=== PATIENT | male | born 1930 | race Caucasian/White ===

== ENCOUNTER 2016-10-11 09:24 | Inpatient (IN) | payer OTHER, MEDICARE ==
[~2016-10-11] VITALS: Ht 165.1 cm; Wt 80.0 kg
[2016-10-11 09:27] VITALS: BP 177/77; PULSE 111; RESP 18; TEMP 97.8; O2SAT 94
[2016-10-11 09:40] VITALS: BP 171/90; PULSE 102; RESP 28; TEMP 98.6; O2SAT 95
--- NOTE | 2016-10-11 09:44 | PD ---
HPI Chief Complaint: GI Complaint Time Seen by Provider: 09:44 Travel History International Travel<30 days: No Contact w/Intl Traveler<30days: No Traveled to known affect area: No History of Present Illness HPI 85-year-old male came to the emergency room with history of rectal bleeding. Patient said that this morning he went to the bathroom thinking he would have a diarrhea and instead had large amount of blood in her out of his rectum. This was painless. It concerned him since he is on Plavix. Here he was slightly tachycardic but blood pressure was maintained. Patient denies any syncopal episode or any lightheadedness. No past history of rectal bleed. No past history of colonoscopy. [facility] Past Medical History Narrative Medical List of his past medical history as reviewed from the nursing note. Social History Tobacco Use: No Allergies-Medications (Allergen,Severity, Reaction): Coded Allergies: No Known Allergies (Unverified , 10/11/16) Comments No known drug allergies. Reported Meds & Prescriptions Reported Meds & Active Scripts Active Reported Hydrochlorothiazide 25 Mg Tab 25 Mg PO DAILY Symbicort Inh (Budesonide/Formoterol Fumarate) 160-4.5 Mcg/Act Aero 2 Puff INH Q12HR Spiriva Respimat Inh (Tiotropium Inh) 2.5 Mcg/Act Aero 2 Puff INH DAILY 2.5 mcg = 1 inhalation Primidone 50 Mg Tab 100 Mg PO HS Pravastatin 80 Mg Tab 80 Mg PO DAILY Oxycodone (Oxycodone HCl) 5 Mg Cap 5 Mg PO Q6H PRN Lexapro (Escitalopram Oxalate) 5 Mg Tab 5 Mg PO DAILY Combivent Respimat Inh (Ipratropium-Albuterol Inh) 20-100 Group Home/Act Aero 1 Puff INH QID Donepezil 10 Mg Tab 10 Mg PO HS Amlodipine (Amlodipine Besylate) 5 Mg Tab 5 Mg PO DAILY Combivent Respimat Inh (Ipratropium-Albuterol Inh) 20-100 Group Home/Act Aero 2 Puff INH TID Lisinopril 10 Mg Tab 10 Mg PO DAILY Isosorbide Mononitrate ER (Isosorbide Mononitrate) 30 Mg Ycn 30 Mg PO DAILY Tamsulosin (Tamsulosin HCl) 0.4 Mg Cap 0.4 Mg PO HS Metoprolol Tartrate 25 Mg Tab 25 Mg PO BID Narrative Medication List of his home medications reviewed from the nursing note. Review of Systems Except as stated in HPI: all other systems reviewed are Neg Physical Exam Narrative GENERAL: Awake, alert, elderly, essential tremor SKIN: Warm and dry. HEAD: Atraumatic. Normocephalic. EYES: Pupils equal and round. No scleral icterus. No injection or drainage. ENT: No nasal bleeding or discharge. Mucous membranes pink and moist. NECK: Trachea midline. No JVD. CARDIOVASCULAR: Regular rate and rhythm. No murmur appreciated. RESPIRATORY: No accessory muscle use. Clear to auscultation. Breath sounds equal bilaterally. GASTROINTESTINAL: Abdomen soft, non-tender, nondistended. Hepatic and splenic margins not palpable. MUSCULOSKELETAL: No obvious deformities. No clubbing. No cyanosis. No edema. NEUROLOGICAL: Awake and alert. No obvious cranial nerve deficits. Motor grossly within normal limits. Normal speech. PSYCHIATRIC: Appropriate mood and affect; insight and judgment normal. Data Data Last Documented VS Vital Signs Date Time Temp Pulse Resp B/P Pulse Ox O2 Delivery O2 Flow Rate FiO2 10/11/16 09:40 98.6 102 28 171/90 95 Orders Complete Blood Count With Diff (10/11/16 10:02) Comprehensive Metabolic Panel (10/11/16 10:02) Prothrombin Time / Inr (Pt) (10/11/16 10:02) Type And Screen (10/11/16 10:02) Ecg Monitoring (10/11/16 10:02) Iv Access Insert/Monitor (10/11/16 10:02) Oximetry (10/11/16 10:02) Sodium Chlor 0.9% 1000 Ml Inj (Ns 1000 M (10/11/16 10:02) Sodium Chloride 0.9% Flush (Ns Flush) (10/11/16 10:15) Potassium Chloride (Kcl) (10/11/16 11:15) Admit Order (Ed Use Only) (10/11/16 11:09) Labs Laboratory Tests Test 10/11/16 10:10 White Blood Count 10.8 TH/MM3 Red Blood Count 4.03 MIL/MM3 Hemoglobin 13.6 GM/DL Hematocrit 38.6 % Mean Corpuscular Volume 95.6 FL Mean Corpuscular Hemoglobin 33.7 PG Mean Corpuscular Hemoglobin 35.3 % Concent Red Cell Distribution Width 14.7 % Platelet Count 189 TH/MM3 Mean Platelet Volume 8.3 FL Neutrophils (%) (Auto) 73.0 % Lymphocytes (%) (Auto) 16.8 % Monocytes (%) (Auto) 8.8 % Eosinophils (%) (Auto) 1.1 % Basophils (%) (Auto) 0.3 % Neutrophils # (Auto) 7.9 TH/MM3 Lymphocytes # (Auto) 1.8 TH/MM3 Monocytes # (Auto) 1.0 TH/MM3 Eosinophils # (Auto) 0.1 TH/MM3 Basophils # (Auto) 0.0 TH/MM3 CBC Comment DIFF FINAL Differential Comment Prothrombin Time 11.9 SEC Prothromb Time International 1.1 RATIO Ratio Sodium Level 134 MEQ/L Potassium Level 3.3 MEQ/L Chloride Level 97 MEQ/L Carbon Dioxide Level 26.8 MEQ/L Anion Gap 10 MEQ/L Blood Urea Nitrogen 19 MG/DL Creatinine 1.60 MG/DL Estimat Glomerular Filtration 41 ML/MIN Rate Random Glucose 324 MG/DL Calcium Level 8.5 MG/DL Total Bilirubin 0.4 MG/DL Aspartate Amino Transf 9 U/L (AST/SGOT) Alanine Aminotransferase 22 U/L (ALT/SGPT) Alkaline Phosphatase 68 U/L Total Protein 6.9 GM/DL Albumin 3.5 GM/DL Blood Type O POSITIVE Antibody Screen NEGATIVE Blood Bank Comment MDM Medical Decision Making Medical Screen Exam Complete: Yes Emergency Medical Condition: Yes Medical Record Reviewed: Yes Differential Diagnosis Lower GI bleed, upper GI bleed and diverticulosis Narrative Course 11:30 AM patient's blood pressure has remained steady. Heart rate is in the 100s. Hemoglobin and hematocrit is stable. Patient had one episode of rectal bleed in the ER. I spoke with Dr. Bach from GI who will consult on the patient. Patient has been admitted. I've given him a liter of fluid bolus. Critical Care Narrative Aggregate critical care time was 30 minutes. Time to perform other separately billable procedures was not included in the critical care time. My time did not include minutes spent treating any other patients simultaneously or on activities that did not directly contribute to the patient's treatment. The services I provided to this patient were to treat and/or prevent clinically significant deterioration that could result in: Lower GI bleed I provided critical care services requiring my management, as noted below: Chart data review, documentation time, medication orders and management, vital sign assessments/reviewing monitor data, ordering and reviewing lab tests, ordering and interpreting/reviewing x-rays and diagnostic studies, care of the patient and discussion of the patient with the admitting physicians. Procedures EKG Prior to Arrival: No HemaPrompt Point of Care Internal Pos. & Neg. Controls: Passed Fecal Specimen Occult Blood: Positive Physician Communication Physician Communication Dr. Bach Diagnosis Primary Impression: Lower GI bleed Admitting Information Admitting Physician Requests: Admit Scripts Aspirin 81 Mg Tabdr81 Mg PO DAILY #30 TAB Prov:Jeimy Houston MD 10/14/16 Enedina Tang MD Oct 11, 2016 09:44
[2016-10-11] MEDS ORDERED: TAMS0.4C4 PO (10:00)
[2016-10-11] MEDS ORDERED: ISOS30TA3 PO (10:00)
[2016-10-11] MEDS ORDERED: PLAV75TA29 PO (10:00)
[2016-10-11] MEDS ORDERED: LISI10TA3 PO (10:00)
[2016-10-11] MEDS ORDERED: METO25TA3 PO (10:00)
[2016-10-11] MEDS ORDERED: AMLO5TAB2 PO (10:00)
[2016-10-11] MEDS ORDERED: IPRAAER INH ×2 (10:00→10:01)
[2016-10-11] MEDS ORDERED: PRAV80TA2 PO (10:01)
[2016-10-11] MEDS ORDERED: LEXA5TAB PO (10:01)
[2016-10-11] MEDS ORDERED: OXYC1CAP PO (10:01)
[2016-10-11] MEDS ORDERED: DONE10TA7 PO (10:01)
[2016-10-11] MEDS ORDERED: SODIUM CHLOR 0.9% 1000 ML INJ 1,000 ML IV SCH (10:02)
[2016-10-11] MEDS ORDERED: PRIM50TA5 PO (10:03)
[2016-10-11] MEDS ORDERED: TIOT12.9 INH (10:03)
[2016-10-11] MEDS ORDERED: HYDR25TA5 PO (10:03)
[2016-10-11] MEDS ORDERED: SYMB160A INH (10:03)
[2016-10-11] MEDS ORDERED: SODIUM CHLORIDE 0.9% FLUSH 5 ML FLUSH IVF PRN (10:15)
[2016-10-11 10:20] LABS: AUTOMATED NEUTROPHIL # 7.9 TH/MM3 (1.8-7.7); BASOPHIL % 0.3 % (0.0-2.0); EOSINOPHIL # 0.1 TH/MM3 (0-0.4); EOSINOPHIL % 1.1 % (0.0-4.0); HEMATOCRIT 38.6 % (39.0-51.0); HEMO FLAGS DIFF FINAL; LYMPH % 16.8 % (9.0-44.0); LYMPHOCYTE # 1.8 TH/MM3 (1.0-4.8); MEAN CELL VOLUME 95.6 FL (80.0-100.0); MEAN CORPUSCULAR HEMOGLOBIN 33.7 PG (27.0-34.0); MEAN CORPUSCULAR HGB CONC 35.3 % (32.0-36.0); MONO % 8.8 % (0.0-8.0); PLATELET COUNT 189 TH/MM3 (150-450); RED BLOOD COUNT 4.03 MIL/MM3 (4.50-5.90); RED CELL DISTRIBUTION WIDTH 14.7 % (11.6-17.2); WHITE BLOOD COUNT 10.8 TH/MM3 (4.0-11.0)
[2016-10-11 10:29] LABS: INTERNATIONAL NORMALIZED RATIO 1.1 RATIO; PROTHROMBIN TIME - PATIENT 11.9 SEC (9.8-11.6)
[2016-10-11 10:35] LABS: ANION GAP 10 MEQ/L (5-15); AST (GOT) 9 U/L (15-37); BICARBONATE 26.8 MEQ/L (21.0-32.0); BLOOD UREA NITROGEN 19 MG/DL (7-18); CHLORIDE 97 MEQ/L (98-107); GLOMERULAR FILTRATION RATE 41 ML/MIN (>89); POTASSIUM 3.3 MEQ/L (3.5-5.1); SODIUM (NA) 134 MEQ/L (136-145)
[2016-10-11 10:38] LABS: ALKALINE PHOSPHATASE 68 U/L (45-117); ALT (GPT) 22 U/L (12-78); TOTAL BILIRUBIN ADULT 0.4 MG/DL (0.2-1.0)
[2016-10-11] MEDS ORDERED: POTASSIUM CHLORIDE 20 MEQ CONTROLLED RELEASE TAB PO ONE (11:15)
[2016-10-11 12:00] VITALS: BP 165/76; PULSE 74; RESP 16; O2SAT 96
[2016-10-11] MEDS ORDERED: PILL SPLITTER OTHER PRN (12:30)
[2016-10-11] MEDS ORDERED: NON-FORMULARY DRUG (Ipratropium-Albuterol Inh (Combivent Respimat Inh) 2 PUFF) INH SCH (13:00)
[2016-10-11] MEDS ORDERED: ALBUTEROL SULFATE 90 MCG/ACT HFA 18 GM INHALER INH SCH (13:00)
[2016-10-11] MEDS: SODIUM CHLOR 0.9% 1000 ML INJ 1,000 ML IV SCH ×2 (14:11→23:55)
--- NOTE | 2016-10-11 14:19 | PD.CONS ---
HPI History of Present Illness This is a 85 year old male with past medical history of cardiac stent, kidney stents, COPD, HTN is here for acute onset of painless rectal bleeding that started today. States he was in his usual state of health up till this am when he went to use the bathroom for what felt like diarrhea, only to find out, was blood in the toilet. States he has been sick and has been having a cough and was started on abx for since Saturday, he didn't couldn't recall the name. He is on chronic use of Plavix at home since 2002, denies alcohol or NSAIDs, he takes baby Aspirin. No previous history of this, never had a colonoscopy. He continue to have bloody diarrhea during exam. No other associated symptoms. He denies nausea, vomiting, hematemesis, abd pain, fever, or chills. hgb is 13.6, hemodynamically stable. (Hortencia Santana) PFSH Past Medical History CAD stage III kidney disease HTN COPD memory deficit Past Surgical History Cardiac stents Kidney stents (Hortencia Santana) Coded Allergies: No Known Allergies (Unverified , 10/11/16) Medications Current Medications Medications (Trade) Dose Ordered Sig/Jonathan Route Start Time Stop Time Status Last Admin (NS Flush) 2 ml UNSCH PRN IVF 10/11/16 10:15 (Symbicort 160-4.5 Inh) 2 puff Q12HR INH 10/11/16 21:00 (Aricept) 10 mg HS PO 10/11/16 21:00 (Lexapro) 5 mg DAILY PO 10/12/16 09:00 (Imdur) 30 mg DAILY PO 10/12/16 09:00 (Prinivil) 10 mg DAILY PO 10/12/16 09:00 (Lopressor) 25 mg BID PO 10/11/16 21:00 (Roxicodone) 5 mg Q6H PRN PO 10/11/16 11:45 (Pravachol) 80 mg DAILY PO 10/12/16 09:00 (Mysoline) 100 mg HS PO 10/11/16 21:00 Tamsulosin HCl 0.4 mg 0.4 mg HS PO 10/11/16 21:00 (NS 1000 ml Inj) 1,000 ml @ 84 mls/hr [id number] IV 10/11/16 12:00 (Pill Splitter) 1 ea UNSCH PRN OTHER 10/11/16 12:30 (Spiriva Inh) 18 mcg DAILY INH 10/12/16 09:00 (Ventolin Hfa Inh) 2 puff TID INH 10/11/16 13:00 Family History No family history of colon cancer Social History No alcohol No smoking (Hortencia Santana) Review of Systems Constitutional: DENIES: Fever, Chills Endocrine: DENIES: Polyuria Eyes: DENIES: Double Vision Ears, nose, mouth, throat: DENIES: Hoarseness Respiratory: COMPLAINS OF: Shortness of breath Cardiovascular: DENIES: Lower Extremity Edema Gastrointestinal: COMPLAINS OF: Bloody stools, Diarrhea, DENIES: Abdominal pain, Black stools, Constipation, Nausea, Vomiting, Difficulty Swallowing, Anorexia, Odynophagia, Swelling of Abdomen, Heartburn, Hematemesis Genitourinary: DENIES: Hematuria Musculoskeletal: DENIES: Neck pain Integumentary: DENIES: Jaundice Hematologic/lymphatic: DENIES: Bruising Immunologic/allergic: DENIES: Eczema Neurologic: DENIES: Abnormal gait Psychiatric: DENIES: Anxiety (Hortencia Santana) GI Exam Vitals I&O Vital Signs Date Time Temp Pulse Resp B/P Pulse Ox O2 Delivery O2 Flow Rate FiO2 10/11/16 09:40 98.6 102 28 171/90 95 10/11/16 09:27 97.8 111 18 177/77 94 Laboratory Test 10/11/16 10:10 White Blood Count 10.8 TH/MM3 Red Blood Count 4.03 MIL/MM3 Hemoglobin 13.6 GM/DL Hematocrit 38.6 % Mean Corpuscular Volume 95.6 FL Mean Corpuscular Hemoglobin 33.7 PG Mean Corpuscular Hemoglobin 35.3 % Concent Red Cell Distribution Width 14.7 % Platelet Count 189 TH/MM3 Mean Platelet Volume 8.3 FL Neutrophils (%) (Auto) 73.0 % Lymphocytes (%) (Auto) 16.8 % Monocytes (%) (Auto) 8.8 % Eosinophils (%) (Auto) 1.1 % Basophils (%) (Auto) 0.3 % Neutrophils # (Auto) 7.9 TH/MM3 Lymphocytes # (Auto) 1.8 TH/MM3 Monocytes # (Auto) 1.0 TH/MM3 Eosinophils # (Auto) 0.1 TH/MM3 Basophils # (Auto) 0.0 TH/MM3 CBC Comment DIFF FINAL Differential Comment Prothrombin Time 11.9 SEC Prothromb Time International 1.1 RATIO Ratio Sodium Level 134 MEQ/L Potassium Level 3.3 MEQ/L Chloride Level 97 MEQ/L Carbon Dioxide Level 26.8 MEQ/L Anion Gap 10 MEQ/L Blood Urea Nitrogen 19 MG/DL Creatinine 1.60 MG/DL Estimat Glomerular Filtration 41 ML/MIN Rate Random Glucose 324 MG/DL Calcium Level 8.5 MG/DL Total Bilirubin 0.4 MG/DL Aspartate Amino Transf 9 U/L (AST/SGOT) Alanine Aminotransferase 22 U/L (ALT/SGPT) Alkaline Phosphatase 68 U/L Total Protein 6.9 GM/DL Albumin 3.5 GM/DL Blood Type O POSITIVE Antibody Screen NEGATIVE Blood Bank Comment Physical Examination HEENT: normocephalic; atraumatic; no jaundice. Throat is clear. NECK: Neck is supple, no JVD, no lymphadenopathy. CHEST: Chest is clear to auscultation and percussion. CARDIAC: Regular rate and rhythm with no murmur gallop or rubs. ABDOMEN: Soft, nondistended, nontender; no hepatosplenomegaly; bowel sounds are present in all four quadrants. EXTREMITIES: No clubbing, cyanosis, or edema. SKIN: Normal; no rash; no jaundice. EMBROIDERER: No focal deficits; alert and oriented times three. (Hortencia Santana) Assessment and Plan Plan - Lower GI bleed- Acute onset, started today, frequent bloody loose stools. He is on chronic use of Plavix at home since 2002, denies alcohol or NSAIDs, he takes baby Aspirin. No previous history of this, never had a colonoscopy. He continue to have bloody diarrhea during exam. No other associated symptoms. He denies nausea, vomiting, hematemesis, abd pain, fever, or chills. hgb is 13.6, hemodynamically stable. - bloody diarrhea- recent abx use since Saturday for URI, will order stools studies - Cardiac stents- on Plavix - Hyponatremia/hypokalemia per attending - HTN, COPD per attending Plan: - clear liquids - Colonoscopy in the am - Golytely today - NPO mn - PPI - Cont. to hold Plavix - Monitor hh ever 6 - Transfuse as needed - Stools for C-diff - Supportive care - Patient seen and examined by Dr. Bach and myself and this note is written on his behalf. (Hortencia Santana) Physician Comments Seen and examined, plan as above, for Colonoscopy in AM. (Brittani Bach MD) Hortencia Santana Oct 11, 2016 14:19 Brittani Bach MD Oct 12, 2016 09:43
[2016-10-11] MEDS: PANTOPRAZOLE SODIUM 40 MG VIAL IV PUSH SCH (15:20)
[2016-10-11] MEDS ORDERED: PEG (High)/E-LYTE SOLN 4000 ML BTL PO ONE (16:00)
[2016-10-11 16:39] LABS: HEMATOCRIT 30.6 % (39.0-51.0); REVIEW FLAG FINAL
[2016-10-11] MEDS: ALBUTEROL SULFATE 90 MCG/ACT HFA 8 GM INHALER INH SCH (18:29)
[2016-10-11 19:28] VITALS: BP 156/86; PULSE 99; RESP 20; TEMP 98.3; O2SAT 97
[2016-10-11] MEDS: BUDESONIDE-FORMOTEROL 160/4.5 MCG INHALER INH SCH (20:26)
[2016-10-11] MEDS: TAMSULOSIN HCL 0.4 MG CAP PO SCH (20:27)
[2016-10-11] MEDS: METOPROLOL TARTRATE 25 MG TAB PO SCH (20:27)
[2016-10-11] MEDS: PRIMIDONE 50 MG TAB PO SCH (20:27)
[2016-10-11] MEDS: DONEPEZIL HCL 5 MG TAB PO SCH (20:27)
[2016-10-11 23:02] LABS: HEMATOCRIT 27.3 % (39.0-51.0); REVIEW FLAG FINAL
[2016-10-11 23:50] VITALS: BP 112/58; PULSE 65; RESP 19; TEMP 96.7; O2SAT 96
[2016-10-11 23:56] VITALS: BP 120/56; PULSE 96; RESP 20; TEMP 97.6; O2SAT 97
[2016-10-12] VITALS (10 sets, daily range): BP systolic 114–149; BP diastolic 48–87; PULSE 65–81; RESP 16–22; TEMP 95.4–97.8; O2SAT 93–99
[2016-10-12] MEDS: PANTOPRAZOLE SODIUM 40 MG VIAL IV PUSH SCH ×2 (02:32→15:49)
[2016-10-12 06:16] LABS: HEMATOCRIT 22.3 % (39.0-51.0); MEAN CORPUSCULAR HEMOGLOBIN 33.5 PG (27.0-34.0); MEAN CORPUSCULAR HGB CONC 35.3 % (32.0-36.0); PLATELET COUNT 126 TH/MM3 (150-450); RED BLOOD COUNT 2.35 MIL/MM3 (4.50-5.90); RED CELL DISTRIBUTION WIDTH 14.8 % (11.6-17.2); REVIEW FLAG FINAL; WHITE BLOOD COUNT 7.2 TH/MM3 (4.0-11.0)
[2016-10-12 07:11] LABS: POTASSIUM 3.7 MEQ/L (3.5-5.1)
[2016-10-12] MEDS ORDERED: SODIUM CHLOR 0.9% 250 ML INJ 250 ML IV ONE (08:45)
[2016-10-12] MEDS: ESCITALOPRAM OXALATE 10 MG TAB PO SCH (08:51)
[2016-10-12] MEDS: LISINOPRIL 10 MG TAB PO SCH (08:51)
[2016-10-12] MEDS: BUDESONIDE-FORMOTEROL 160/4.5 MCG INHALER INH SCH ×2 (08:51→20:44)
[2016-10-12] MEDS: METOPROLOL TARTRATE 25 MG TAB PO SCH ×2 (08:52→20:40)
[2016-10-12] MEDS: ALBUTEROL SULFATE 90 MCG/ACT HFA 8 GM INHALER INH SCH ×3 (08:53→17:15)
[2016-10-12] MEDS: TIOTROPIUM BROMIDE 18 MCG INH INH SCH (08:55)
[2016-10-12] MEDS ORDERED: ISOSORBIDE MONONITRATE 30 MG TAB PO SCH (09:00)
[2016-10-12] MEDS ORDERED: NON-FORMULARY DRUG (Tiotropium Inh (Spiriva Respimat Inh) 2 PUFF) INH SCH (09:00)
[2016-10-12] MEDS ORDERED: PRAVASTATIN SOD 80 MG TAB PO SCH (09:00)
--- NOTE | 2016-10-12 09:16 | HHI.PR ---
Subjective History of Present Illness had significant lower GI bleeding last night, had some clots Stop around midnight, this morning small amount of fresh blood per rectum Hemoglobin drops less than 8 Denies abdominal pain No nausea or vomiting No fever or chills Currently nothing by mouth Offers no other complaints Vitals/Results Vital Signs Vital Signs Date Time Temp Pulse Resp B/P Pulse Ox O2 Delivery O2 Flow Rate FiO2 10/12/16 07:38 97.7 76 18 134/80 96 10/12/16 03:41 97.4 80 20 149/65 93 10/11/16 23:56 97.6 96 20 120/56 97 10/11/16 19:28 98.3 99 20 156/86 97 10/11/16 12:00 74 16 165/76 96 Room Air 10/11/16 09:40 98.6 102 28 171/90 95 10/11/16 09:27 97.8 111 18 177/77 94 CBC/BMP: 10/12/16 0607 10/12/16 0601 Lab Results Laboratory Tests Test 10/11/16 10/11/16 10/11/16 10/12/16 10:10 16:27 22:52 06:01 White Blood Count 10.8 TH/MM3 Red Blood Count 4.03 MIL/MM3 Hemoglobin 13.6 GM/DL 10.7 GM/DL 9.6 GM/DL Hematocrit 38.6 % 30.6 % 27.3 % Mean Corpuscular Volume 95.6 FL Mean Corpuscular Hemoglobin 33.7 PG Mean Corpuscular Hemoglobin 35.3 % Concent Red Cell Distribution Width 14.7 % Platelet Count 189 TH/MM3 Mean Platelet Volume 8.3 FL Neutrophils (%) (Auto) 73.0 % Lymphocytes (%) (Auto) 16.8 % Monocytes (%) (Auto) 8.8 % Eosinophils (%) (Auto) 1.1 % Basophils (%) (Auto) 0.3 % Neutrophils # (Auto) 7.9 TH/MM3 Lymphocytes # (Auto) 1.8 TH/MM3 Monocytes # (Auto) 1.0 TH/MM3 Eosinophils # (Auto) 0.1 TH/MM3 Basophils # (Auto) 0.0 TH/MM3 CBC Comment DIFF FINAL Differential Comment Prothrombin Time 11.9 SEC Prothromb Time International 1.1 RATIO Ratio Sodium Level 134 MEQ/L 140 MEQ/L Potassium Level 3.3 MEQ/L 3.7 MEQ/L Chloride Level 97 MEQ/L 103 MEQ/L Carbon Dioxide Level 26.8 MEQ/L 28.0 MEQ/L Anion Gap 10 MEQ/L 9 MEQ/L Blood Urea Nitrogen 19 MG/DL 18 MG/DL Creatinine 1.60 MG/DL 1.24 MG/DL Estimat Glomerular Filtration 41 ML/MIN 56 ML/MIN Rate Random Glucose 324 MG/DL 177 MG/DL Calcium Level 8.5 MG/DL 7.5 MG/DL Total Bilirubin 0.4 MG/DL Aspartate Amino Transf 9 U/L (AST/SGOT) Alanine Aminotransferase 22 U/L (ALT/SGPT) Alkaline Phosphatase 68 U/L Total Protein 6.9 GM/DL Albumin 3.5 GM/DL Blood Type O POSITIVE Antibody Screen NEGATIVE Blood Bank Comment Test 10/12/16 06:07 White Blood Count 7.2 TH/MM3 Red Blood Count 2.35 MIL/MM3 Hemoglobin 7.9 GM/DL Hematocrit 22.3 % Mean Corpuscular Volume 95.0 FL Mean Corpuscular Hemoglobin 33.5 PG Mean Corpuscular Hemoglobin 35.3 % Concent Red Cell Distribution Width 14.8 % Platelet Count 126 TH/MM3 Mean Platelet Volume 7.2 FL Physical Exam General General Appearance: No Acute Distress, Comfortable Appearance Remarks Very hard of hearing, elderly male, Eyes Eye Exam: Pupils Equal, Sclera White, Extraocular Movement Intact Ears & Nose Ears & Nose Exam: Nasal Mucosa [place] Throat Throat Exam: Oral Mucosa [place] & Moist Neck Neck Exam: Neck Supple, Trachea Midline Pulmonary Resp Exam: Clear Bilaterally Cardiology CV Exam: Regular, Normal Sinus Rhythm Gastrointestinal/Abdomen GI Exam: Soft, Non-Tender, Bowel Sounds Present Integumentary Skin Exam: Warm, Dry Neurologic Neuro Exam: Alert, Awake, Oriented, Speech Clear, Moving All Extremities Psychiatric Psych Exam: Appropriate Responses Assessment/Plan Assessment/Plan ASSESSMENT 1. Acute lower GI bleeding, etiology unclear, rule out diverticular bleed, rule out polyp, rule out malignancy, rule out AVM, etc. 2. History of COPD, on home oxygen. 3. Hypertension. 4. Hyperlipidemia. 5. Coronary artery disease. 6. Possible diabetes. 7. Chronic kidney disease 8. Dementia 9. History of BPH 10. Chronic pain. PLAN NPO cont IV fluids. f/u H&H noted , sig drop , will transfuse 2 U PRBC f/u post transfusion h/h for Cscope , will f/u results GI input appreciated aerosol tx BP control pt meets Inpatient criteria d/t profuse LGI bleeding . without appropriate tx he may develop hypovolemic shock , also etiology need to be established expected LOS is 3 to 4 days depending on his bleeding / C scope findings cont current tx d/w PT DNR d/w RN a labs will f/u Jeimy Houston MD Oct 12, 2016 09:15
--- NOTE | 2016-10-12 09:25 | MH ---
cc: CHRIS FLOYD DATE OF ADMISSION 10/11/2016 PRIMARY CARE PHYSICIAN Ghanshyam Gupta MD CHIEF COMPLAINT The patient to emergency room complaining for lower GI bleed for one day. HISTORY OF PRESENT ILLNESS This is an 85-year-old male with prior history of hypertension, hyperlipidemia, coronary artery disease, benign prostatic hypertrophy, chronic obstructive pulmonary disease on home oxygen who also has history of dementia. He is a poor historian. He was treated for what he described as bronchitis and a cold about a week ago with oral antibiotics. His cough and congestion has improved significantly. However, this morning he went to bathroom and passed large amount of bright red blood per rectum. This was painless. He denies abdominal pain except for mild cramping. He got concerned and had to come to the hospital. He denies preceding fever, chills or night. Denies anorexia, nausea or vomiting. There is no history of weight loss. Denies tenesmus. Upon arrival, he was noted to be tachycardiac, slightly pale. His initial hemoglobin was good. Rectal examination reveals maroon to red stool. The patient was taking Plavix. Recommendation was given by ER physician for the patient to be admitted to the hospital. The patient was started on IV fluids and is being admitted to hospital for observation and further evaluation. PAST MEDICAL HISTORY 1. Hypertension. 2. Hyperlipidemia. 3. Coronary artery disease 4. History of COPD on home oxygen 5. History of benign prostatic hypertrophy 6. Degenerative disk disease, chronic back pain 7. Recent bronchitis 8. Dementia. 9. History of Renal stents[suspect renal artery stenosis]. PAST SURGICAL HISTORY 1. Cardiac catheterization and stenting many years ago 2. History of renal stents. SOCIAL HISTORY The patient used to smoke in the past, stopped smoking many years ago. He denies drinking or drug abuse. He is and lives by himself and his family lives close by. MEDICATIONS Home medications. 1. Symbicort two puffs twice daily, 2. Flomax 0.4 mg daily 3. Lisinopril 10 mg daily, 4. Lexapro 5 mg daily 5. Spiriva two puffs daily 6. Primidone 100 mg bedtime, 7. Combivent MDI two puffs t.i.d., 8. Metoprolol 25 mg b.i.d., 9. Norvasc 5 mg daily, 10. Pravastatin 80 mg daily, 11. Imdur 30 mg daily. 12. Oxycodone 5 q 6 hrs p.r.n. 13. Aricept 10 mg q.h.s. 14. Plavix 75 mg daily, 15. Hydrochlorothiazide 25 mg daily. FAMILY HISTORY Both of his parents are , mother at the age of 76. She had brain tumor. Dad in his 80s from old age and had some kidney problem. REVIEW OF SYSTEMS The patient denies headache, loss of vision, double vision. He is feeling weak. He has multiple bloody stools since his admission to the hospital. He denies abdominal pain per se except for mild cramping only at the time of defecation. Tenesmus. He denies fever, chills, night sweats. He denies dyspnea at rest, orthopnea, paroxysmal nocturnal dyspnea. He has chronic back pain and takes pain medication. His memory is not good. He is [id number]. Denies any recent traveling. Otherwise review of systems is negative for 12 systems. PHYSICAL EXAMINATION GENERAL: Elderly obese male sitting up in chair not in acute distress. Awake, alert. He is oriented to self and place, slightly forgetful. He is [id number]. VITAL SIGNS: Upon arrival, blood pressure 177/77, pulse 111, respiration 18, temperature 97.8, O2 sat was 94%. His most recent blood pressure 160/76, pulse of 74 HEAD: Normocephalic, atraumatic EYES: Extraocular muscles intact, round and reactive, no icterus. The patient has mild pallor. ENT: No throat congestion. No oral ulcers or thrush. Ears clear. NECK: Supple. No JVD, no lymph nodes. No bruits. CARDIOVASCULAR: S1-S2 audible. Regular rhythm. No murmur or gallop. RESPIRATORY: Distant breath sounds. The patient has scattered expiratory rhonchi, no crackles. ABDOMEN: Soft, protuberant, bulky, nontender. Positive bowel pattern. No hepatosplenomegaly. RECTAL: Exam not done. However per ER physician the patient has bright red blood in his rectal vault. No masses felt. EXTREMITIES: No edema, cyanosis or clubbing. Feet are warm to touch. NEUROLOGIC: Kashif sign is negative. He is awake and alert. He is oriented to self and place, slightly forgetful, [id number], follows simple command, moves all four extremities. LABORATORY DATA White count 10.8, hemoglobin 13.6, hematocrit 38.6, platelet count of 189 with an MCV of 95.6. Repeat hemoglobin 10.7, hematocrit 30.6. Sodium 134, potassium 3.3 chloride 97, bicarb 26.8, BUN of 19, creatinine 1.60, glucose was 324. Calcium 8.7. LFTs essentially unremarkable normal ALP, ALT. His AST is slightly low at 9. Total protein 6.1 and albumin 3.5. PT 11.9, INR 1.1. ASSESSMENT 1. Acute lower GI bleeding, etiology unclear, rule out diverticular bleed, rule out polyp, rule out malignancy, rule out AVM, etc. 2. History of COPD, on home oxygen. 3. Hypertension. 4. Hyperlipidemia. 5. Coronary artery disease. 6. Possible diabetes. 7. Chronic kidney disease. 8. Dementia 9. History of BPH 10. Chronic pain. PLAN The patient is admitted to hospital currently under observation. Put him on clear liquid diet. start IV fluids. Monitor H&H. Hemoglobin has already dropped from 13.6-10.7. We will continue to monitor. If H/H dropped significantly will consider blood transfusion. Hold Plavix at this time. Consult GI prescription eyeglass maker. The patient will need diagnostic flexible sigmoidoscopy or colonoscopy. Give him DuoNeb q.i.d. and p.r.n. give him PPI. SCDs for DVT prophylaxis. Monitor blood sugar. Discuss finding with the patient the patient and I have answered all of his questions. The patient apparently has [place] DNR, he wishes to maintain that in the hospital. Risks and benefits were explained to him. He verbalized understanding and said that "I am 86 years-old and how long am I is going to live." He does not want to go on any machines & does want any heroic intervention.Pt is DNR. Further management of this patient will depend on the hospital course. MD NAHUM Jones/ /5:42 PM /9:[address] [facility], [place]
[2016-10-12] MEDS ORDERED: PROPOFOL 200 MG/20 ML AMP IV ONE (09:51)
--- NOTE | 2016-10-12 14:15 | EKG ---
Date Performed: 10/12/2016 Time Performed: 08:56:39 PTAGE: 85 years EKG: ECTOPIC ATRIAL RHYTHM BORDERLINE LEFT AXIS DEVIATION LOW QRS VOLTAGE IN EXTREMITY LEADS POS SIBLE RIGHT VENTRICULAR CONDUCTION DELAY ABNORMAL QRS-T ANGLE Compared to previous tracing, low volta ge is now present. Clinical correlation is recommended. ABNORMAL ECG PREVIOUS TRACING : 03/01/1994 [id number] DOCTOR: Jermain Harrison Interpretating Date/Time 10/12/2016 14:14:05
[2016-10-12] MEDS: SODIUM CHLOR 0.9% 1000 ML INJ 1,000 ML IV SCH (17:16)
[2016-10-12] MEDS: PRAVASTATIN SOD 80 MG TAB PO SCH (20:40)
[2016-10-12] MEDS: ISOSORBIDE MONONITRATE 30 MG TAB PO SCH (20:40)
[2016-10-12] MEDS: TAMSULOSIN HCL 0.4 MG CAP PO SCH (20:40)
[2016-10-12] MEDS: DONEPEZIL HCL 5 MG TAB PO SCH (20:40)
[2016-10-12] MEDS: PRIMIDONE 50 MG TAB PO SCH (20:41)
[2016-10-12 23:41] LABS: HEMATOCRIT 29.9 % (39.0-51.0); REVIEW FLAG FINAL
[2016-10-13] VITALS (8 sets, daily range): BP systolic 107–137; BP diastolic 51–63; PULSE 65–78; RESP 20–21; TEMP 96–97.8; O2SAT 95–98
[2016-10-13] MEDS: SODIUM CHLOR 0.9% 1000 ML INJ 1,000 ML IV SCH ×3 (00:18→20:30)
[2016-10-13] MEDS: PANTOPRAZOLE SODIUM 40 MG VIAL IV PUSH SCH ×2 (03:08→14:38)
[2016-10-13 05:10] LABS: HEMATOCRIT 26.8 % (39.0-51.0); MEAN CELL VOLUME 91.1 FL (80.0-100.0); MEAN CORPUSCULAR HEMOGLOBIN 32.4 PG (27.0-34.0); MEAN CORPUSCULAR HGB CONC 35.5 % (32.0-36.0); PLATELET COUNT 110 TH/MM3 (150-450); RED BLOOD COUNT 2.94 MIL/MM3 (4.50-5.90); RED CELL DISTRIBUTION WIDTH 16.5 % (11.6-17.2); REVIEW FLAG FINAL; WHITE BLOOD COUNT 5.8 TH/MM3 (4.0-11.0)
[2016-10-13 05:29] LABS: BICARBONATE 29.1 MEQ/L (21.0-32.0); POTASSIUM 3.5 MEQ/L (3.5-5.1)
[2016-10-13] MEDS: LISINOPRIL 10 MG TAB PO SCH (07:55)
[2016-10-13] MEDS: ESCITALOPRAM OXALATE 10 MG TAB PO SCH (07:56)
[2016-10-13] MEDS: METOPROLOL TARTRATE 25 MG TAB PO SCH ×2 (07:56→20:26)
[2016-10-13] MEDS: BUDESONIDE-FORMOTEROL 160/4.5 MCG INHALER INH SCH ×2 (07:57→20:27)
[2016-10-13] MEDS: TIOTROPIUM BROMIDE 18 MCG INH INH SCH (07:59)
[2016-10-13] MEDS: ALBUTEROL SULFATE 90 MCG/ACT HFA 8 GM INHALER INH SCH ×3 (07:59→16:45)
--- NOTE | 2016-10-13 09:50 | HHI.GIFU ---
Subjective Remarks Had a bowel movement this AM and no blood, diet tolerated well Objective Vitals I&O Vital Signs Date Time Temp Pulse Resp B/P Pulse Ox O2 Delivery O2 Flow Rate FiO2 10/13/16 08:00 96.8 69 20 135/63 95 10/13/16 00:35 96.8 65 20 109/53 96 10/12/16 17:52 96.0 67 16 114/57 99 10/12/16 17:48 96.2 65 16 114/57 97 10/12/16 15:25 97.0 68 22 121/86 98 10/12/16 13:58 96.0 70 20 134/87 97 10/12/16 13:51 95.4 73 20 147/62 98 10/12/16 13:41 95.6 81 20 142/60 95 10/12/16 11:37 97.4 73 20 128/58 98 10/12/16 10:39 Nasal Cannula 4 10/12/16 10:20 69 18 105/45 99 10/12/16 10:15 72 18 103/44 99 10/12/16 10:10 98.2 70 18 93/38 100 I/O 10/12/16 10/12/16 10/12/16 10/13/16 10/13/16 10/13/16 07:00 15:00 23:00 07:00 15:00 23:00 Intake Total 1135 ml 120 ml 120 ml Balance 1135 ml 120 ml 120 ml Intake Oral 310 ml 120 ml 120 ml IV Total 825 ml # Voids 4 3 2 # Bowel Movements 1 1 0 Laboratory Laboratory Tests Test 10/12/16 10/12/16 10/12/16 10/13/16 12:08 12:19 23:09 04:40 Blood Type O POSITIVE O POSITIVE Crossmatch Leukocyte-Reduced Red Blood Cells Blood Bank Comment Hemoglobin 10.5 9.5 Hematocrit 29.9 26.8 White Blood Count 5.8 Red Blood Count 2.94 Mean Corpuscular Volume 91.1 Mean Corpuscular Hemoglobin 32.4 Mean Corpuscular Hemoglobin 35.5 Concent Red Cell Distribution Width 16.5 Platelet Count 110 Mean Platelet Volume 7.4 Sodium Level 141 Potassium Level 3.5 Chloride Level 106 Carbon Dioxide Level 29.1 Anion Gap 6 Blood Urea Nitrogen 17 Creatinine 1.36 Estimat Glomerular Filtration 50 Rate Random Glucose 138 Calcium Level 7.5 Physical Exam HEENT: Pupils round and reactive to light; normocephalic; atraumatic; no jaundice. Throat is clear. NECK: Neck is supple, no JVD, no lymphadenopathy. CHEST: Chest is clear to auscultation and percussion. CARDIAC: Regular rate and rhythm with no murmur gallop or rubs. ABDOMEN: Soft, nondistended, nontender; no hepatosplenomegaly; bowel sounds are present in all four quadrants. EXTREMITIES: No clubbing, cyanosis, or edema. Assessment and Plan Plan - Diverticular bleeding, Lower GI bleed- Acute onset, started today, frequent bloody loose stools. He is on chronic use of Plavix at home since 2002, denies alcohol or NSAIDs, he takes baby Aspirin. No previous history of this, never had a colonoscopy. He continue to have bloody diarrhea during exam. No other associated symptoms. He denies nausea, vomiting, hematemesis, abd pain, fever, or chills. hgb is stable, hemodynamically stable. - bloody diarrhea- recent abx use since Saturday for URI, will order stools studies - Cardiac stents- on Plavix - Hyponatremia/hypokalemia per attending - HTN, COPD per attending Plan: - YISEL - Cont. Plavix if absolutely needed - Monitor hh Q 12 hours - Transfuse as needed - Will need tov repeat colonoscopy after 1 month as outpatient. - Supportive care Brittani Bach MD Oct 13, 2016 09:50
--- NOTE | 2016-10-13 10:46 | HHI.PR ---
Subjective History of Present Illness FEELS BETTER no more bleeding over night no rectal pain moved bowel ,no diarrhea Denies abdominal pain No nausea or vomiting No fever or chills Currently nothing by mouth Offers no other complaints Vitals/Results Intake & Output 10/12/16 10/12/16 10/13/16 14:59 22:59 06:59 Intake Total 1135 ml 120 ml 120 ml Balance 1135 ml 120 ml 120 ml Intake Oral 310 ml 120 ml 120 ml IV Total 825 ml # Voids 4 3 2 # Bowel Movements 1 1 0 Vital Signs Vital Signs Date Time Temp Pulse Resp B/P Pulse Ox O2 Delivery O2 Flow Rate FiO2 10/13/16 08:00 96.8 69 20 135/63 95 10/13/16 00:35 96.8 65 20 109/53 96 10/12/16 17:52 96.0 67 16 114/57 99 10/12/16 17:48 96.2 65 16 114/57 97 10/12/16 15:25 97.0 68 22 121/86 98 10/12/16 13:58 96.0 70 20 134/87 97 10/12/16 13:51 95.4 73 20 147/62 98 10/12/16 13:41 95.6 81 20 142/60 95 10/12/16 11:37 97.4 73 20 128/58 98 CBC/BMP: 10/13/16 0440 10/13/16 0440 Lab Results Laboratory Tests Test 10/12/16 10/12/16 10/12/16 10/13/16 12:08 12:19 23:09 04:40 Blood Type O POSITIVE O POSITIVE Crossmatch Leukocyte-Reduced Red Blood Cells Blood Bank Comment Hemoglobin 10.5 GM/DL 9.5 GM/DL Hematocrit 29.9 % 26.8 % White Blood Count 5.8 TH/MM3 Red Blood Count 2.94 MIL/MM3 Mean Corpuscular Volume 91.1 FL Mean Corpuscular Hemoglobin 32.4 PG Mean Corpuscular Hemoglobin 35.5 % Concent Red Cell Distribution Width 16.5 % Platelet Count 110 TH/MM3 Mean Platelet Volume 7.4 FL Sodium Level 141 MEQ/L Potassium Level 3.5 MEQ/L Chloride Level 106 MEQ/L Carbon Dioxide Level 29.1 MEQ/L Anion Gap 6 MEQ/L Blood Urea Nitrogen 17 MG/DL Creatinine 1.36 MG/DL Estimat Glomerular Filtration 50 ML/MIN Rate Random Glucose 138 MG/DL Calcium Level 7.5 MG/DL Physical Exam General General Appearance: No Acute Distress, Comfortable Appearance Remarks Very hard of hearing, elderly male, Eyes Eye Exam: Pupils Equal, Sclera White, Extraocular Movement Intact Ears & Nose Ears & Nose Exam: Nasal Mucosa [place] Throat Throat Exam: Oral Mucosa [place] & Moist Neck Neck Exam: Neck Supple, Trachea Midline Pulmonary Resp Exam: Clear Bilaterally Cardiology CV Exam: Regular, Normal Sinus Rhythm Gastrointestinal/Abdomen GI Exam: Soft, Non-Tender, Bowel Sounds Present Integumentary Skin Exam: Warm, Dry Neurologic Neuro Exam: Alert, Awake, Oriented, Speech Clear, Moving All Extremities Psychiatric Psych Exam: Appropriate Responses PUD Prophylasis PUD Prophylaxis: Protonix Assessment/Plan Assessment/Plan ASSESSMENT 1. Acute lower GI bleeding, etiology unclear, rule out diverticular bleed, rule out polyp, rule out malignancy, rule out AVM, etc. 2. History of COPD, on home oxygen. 3. Hypertension. 4. Hyperlipidemia. 5. Coronary artery disease. 6. Possible diabetes. 7. Chronic kidney disease 8. Dementia 9. History of BPH 10. Chronic pain. PLAN diet resumed s/pc scope , diverticular disease , diffuse blood s/p 2 U prbc tx ,f/u H&H noted d/c IVF GI input appreciated , will cont to monitor , start ASA in a day or so hold plavix at this time may resume after 1 wk aerosol tx BP control d/w PT , cont current tx DNR a labs ss for d/c planning will f/u Jeimy Houston MD Oct 13, 2016 10:46
[2016-10-13] MEDS: PRIMIDONE 50 MG TAB PO SCH (20:25)
[2016-10-13] MEDS: PRAVASTATIN SOD 80 MG TAB PO SCH (20:26)
[2016-10-13] MEDS: ISOSORBIDE MONONITRATE 30 MG TAB PO SCH (20:26)
[2016-10-13] MEDS: TAMSULOSIN HCL 0.4 MG CAP PO SCH (20:26)
[2016-10-13] MEDS: DONEPEZIL HCL 5 MG TAB PO SCH (20:26)
[2016-10-14] MEDS: PANTOPRAZOLE SODIUM 40 MG VIAL IV PUSH SCH (02:40)
[2016-10-14 06:58] LABS: BICARBONATE 25.8 MEQ/L (21.0-32.0); POTASSIUM 3.7 MEQ/L (3.5-5.1)
[2016-10-14 07:17] LABS: HEMATOCRIT 26.1 % (39.0-51.0); MEAN CELL VOLUME 92.3 FL (80.0-100.0); MEAN CORPUSCULAR HEMOGLOBIN 32.5 PG (27.0-34.0); MEAN CORPUSCULAR HGB CONC 35.2 % (32.0-36.0); PLATELET COUNT 113 TH/MM3 (150-450); RED BLOOD COUNT 2.82 MIL/MM3 (4.50-5.90); RED CELL DISTRIBUTION WIDTH 16.5 % (11.6-17.2); REVIEW FLAG FINAL; WHITE BLOOD COUNT 5.4 TH/MM3 (4.0-11.0)
[2016-10-14 08:00] VITALS: BP 144/65; PULSE 63; RESP 16; TEMP 97.6; O2SAT 100
[2016-10-14] MEDS: ESCITALOPRAM OXALATE 10 MG TAB PO SCH (08:24)
[2016-10-14] MEDS: METOPROLOL TARTRATE 25 MG TAB PO SCH (08:24)
[2016-10-14] MEDS: LISINOPRIL 10 MG TAB PO SCH (08:24)
[2016-10-14] MEDS: ALBUTEROL SULFATE 90 MCG/ACT HFA 8 GM INHALER INH SCH ×2 (08:25→12:24)
[2016-10-14] MEDS: BUDESONIDE-FORMOTEROL 160/4.5 MCG INHALER INH SCH (08:25)
[2016-10-14] MEDS: TIOTROPIUM BROMIDE 18 MCG INH INH SCH (08:25)
--- NOTE | 2016-10-14 11:04 | HHI.GIFU ---
Subjective Remarks No bleeding over the last 24 hours, tolerating diet well. Objective Vitals I&O Vital Signs Date Time Temp Pulse Resp B/P Pulse Ox O2 Delivery O2 Flow Rate FiO2 10/14/16 08:00 97.6 63 16 144/65 100 10/13/16 23:52 96.6 78 21 107/51 96 10/13/16 20:07 97.8 74 21 137/62 98 10/13/16 16:00 96.0 70 20 131/61 95 10/13/16 14:02 97 10/13/16 12:10 97 10/13/16 12:00 97.2 68 20 135/59 95 I/O 10/13/16 10/13/16 10/13/16 10/14/16 10/14/16 10/14/16 07:00 15:00 23:00 07:00 15:00 23:00 Intake Total 120 ml 1330 ml 1095 ml 1461 ml Output Total 3 ml 800 ml 1000 ml Balance 120 ml 1327 ml 295 ml 461 ml Intake Oral 120 ml 960 ml 580 ml 760 ml IV Total 370 ml 515 ml 701 ml Output Urine Total 3 ml 800 ml 1000 ml # Voids 2 # Bowel Movements 0 2 Laboratory Laboratory Tests Test 10/14/16 05:29 White Blood Count 5.4 Red Blood Count 2.82 Hemoglobin 9.2 Hematocrit 26.1 Mean Corpuscular Volume 92.3 Mean Corpuscular Hemoglobin 32.5 Mean Corpuscular Hemoglobin 35.2 Concent Red Cell Distribution Width 16.5 Platelet Count 113 Mean Platelet Volume 7.7 Sodium Level 142 Potassium Level 3.7 Chloride Level 108 Carbon Dioxide Level 25.8 Anion Gap 8 Blood Urea Nitrogen 16 Creatinine 1.23 Estimat Glomerular Filtration 56 Rate Random Glucose 123 Calcium Level 7.8 Physical Exam HEENT: Pupils round and reactive to light; normocephalic; atraumatic; no jaundice. Throat is clear. NECK: Neck is supple, no JVD, no lymphadenopathy. CHEST: Chest is clear to auscultation and percussion. CARDIAC: Regular rate and rhythm with no murmur gallop or rubs. ABDOMEN: Soft, nondistended, nontender; no hepatosplenomegaly; bowel sounds are present in all four quadrants. EXTREMITIES: No clubbing, cyanosis, or edema. Assessment and Plan Plan - Diverticular bleeding, Lower GI bleed- Acute onset, started today, frequent bloody loose stools. He is on chronic use of Plavix at home since 2002, denies alcohol or NSAIDs, he takes baby Aspirin. No previous history of this, never had a colonoscopy. He continue to have bloody diarrhea during exam. No other associated symptoms. He denies nausea, vomiting, hematemesis, abd pain, fever, or chills. hgb is stable, hemodynamically stable. - bloody diarrhea- recent abx use since Saturday for URI, will order stools studies - Cardiac stents- on Plavix - Hyponatremia/hypokalemia per attending - HTN, COPD per attending Plan: - YISEL - Cont. Plavix if absolutely needed - Will need to repeat colonoscopy after 1 month as outpatient. - Supportive care - Stable from GI point of view for discharge to be followed as outpatient. Brittani Bach MD Oct 14, 2016 11:04
[2016-10-14] MEDS: SODIUM CHLOR 0.9% 1000 ML INJ 1,000 ML IV SCH (11:31)
[2016-10-14 12:00] VITALS: BP 123/60; PULSE 68; RESP 17; TEMP 96.2; O2SAT 98
--- NOTE | 2016-10-14 12:12 | HHI.PR ---
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 Offers no other complaints Vitals/Results Intake & Output 10/13/16 10/13/16 10/14/16 15:00 23:00 07:00 Intake Total 1330 ml 1095 ml 1461 ml Output Total 3 ml 800 ml 1000 ml Balance 1327 ml 295 ml 461 ml Intake Oral 960 ml 580 ml 760 ml IV Total 370 ml 515 ml 701 ml Output Urine Total 3 ml 800 ml 1000 ml # Bowel Movements 2 Vital Signs Vital Signs Date Time Temp Pulse Resp B/P Pulse Ox O2 Delivery O2 Flow Rate FiO2 10/14/16 08:00 97.6 63 16 144/65 100 10/13/16 23:52 96.6 78 21 107/51 96 10/13/16 20:07 97.8 74 21 137/62 98 10/13/16 16:00 96.0 70 20 131/61 95 10/13/16 14:02 97 CBC/BMP: 10/14/16 0529 10/14/16 0529 Lab Results Laboratory Tests Test 10/14/16 05:29 White Blood Count 5.4 TH/MM3 Red Blood Count 2.82 MIL/MM3 Hemoglobin 9.2 GM/DL Hematocrit 26.1 % Mean Corpuscular Volume 92.3 FL Mean Corpuscular Hemoglobin 32.5 PG Mean Corpuscular Hemoglobin 35.2 % Concent Red Cell Distribution Width 16.5 % Platelet Count 113 TH/MM3 Mean Platelet Volume 7.7 FL Sodium Level 142 MEQ/L Potassium Level 3.7 MEQ/L Chloride Level 108 MEQ/L Carbon Dioxide Level 25.8 MEQ/L Anion Gap 8 MEQ/L Blood Urea Nitrogen 16 MG/DL Creatinine 1.23 MG/DL Estimat Glomerular Filtration 56 ML/MIN Rate Random Glucose 123 MG/DL Calcium Level 7.8 MG/DL Physical Exam General General Appearance: No Acute Distress, Comfortable Appearance Remarks Very hard of hearing, elderly male, Eyes Eye Exam: Pupils Equal, Sclera White, Extraocular Movement Intact Ears & Nose Ears & Nose Exam: Nasal Mucosa [place] Throat Throat Exam: Oral Mucosa [place] & Moist Neck Neck Exam: Neck Supple, Trachea Midline Pulmonary Resp Exam: Clear Bilaterally, Breath Sounds Equal, No Distress Cardiology CV Exam: Regular, Normal Sinus Rhythm Gastrointestinal/Abdomen GI Exam: Soft, Non-Tender, Bowel Sounds Present Integumentary Skin Exam: Warm, Dry Neurologic Neuro Exam: Alert, Awake, Oriented, Speech Clear, Moving All Extremities Neuro Remarks hard of hearing Psychiatric Psych Exam: Appropriate Responses PUD Prophylasis PUD Prophylaxis: Protonix Assessment/Plan Assessment/Plan ASSESSMENT 1. Acute profuse lower GI bleeding, Diverticular bleed,stopped 2. History of COPD, on home oxygen. 3. Hypertension. 4. Hyperlipidemia. 5. Coronary artery disease. 6. Possible diabetes. 7. Chronic kidney disease 8. Dementia 9. History of BPH 10. Chronic pain. 11. Anemia , acute blood loss anemia d/t # 1 12. Diverticular disease PLAN Hear healthy diet w more fiber s/pc scope , diverticular disease , diffuse blood s/p 2 U prbc tx ,f/u H&H stable d/w Dr Bach ok to start ASA hold plavix for 1 wk , if no bleeding , may resume plavix aerosol tx BP control d/w PT , cont current tx DNR d/w HOME today pt refused HHC see MRS see Orders see Prescriptions f/u pcp f/u Jeimy Nicolas MD Oct 14, 2016 12:12
[2016-10-14] MEDS ORDERED: ASPIRIN EC 325 MG TABEC PO ONE (12:15)
[2016-10-14] MEDS ORDERED: ASPI1TAB69 PO (12:28)
--- NOTE | 2016-10-19 18:37 | HHI.DS ---
Discharge Summary Admission Date Oct 12, 2016 at 09:18 Discharge Date: Oct 14, 2016 Admitting Diagnosis rectal bleed (1) Lower GI bleed (2) COPD (chronic obstructive pulmonary disease) (3) CAD (coronary artery disease) (4) Hypertension (5) Dementia (6) CKD (chronic kidney disease) (7) BPH (benign prostatic hyperplasia) Procedures 10/12/2016 colonoscopy Hospital Course This is an 85-year-old male with prior history of hypertension, hyperlipidemia, coronary artery disease, benign prostatic hypertrophy, chronic obstructive pulmonary disease on home oxygen who also has history of dementia. He is a poor historian. He was treated for what he described as bronchitis and a cold about a week ago with oral antibiotics. His cough and congestion has improved significantly. However, this morning he went to bathroom and passed large amount of bright red blood per rectum. This was painless. He denied abdominal pain except for mild cramping. He got concerned and had to come to the hospital. He denied preceding fever, chills or night. Denied anorexia, nausea or vomiting. There was no history of weight loss. Denied tenesmus. Upon arrival, he was noted to be tachycardiac, slightly pale. His initial hemoglobin was good. Rectal examination reveals maroon to red stool. The patient was taking Plavix. Recommendation was given by ER physician for the patient to be admitted to the hospital. The patient was started on IV fluids and was admitted to hospital for observation and further evaluation for: ASSESSMENT 1. Acute lower GI bleeding, etiology unclear, rule out diverticular bleed, rule out polyp, rule out malignancy, rule out AVM, etc. 2. History of COPD, on home oxygen. 3. Hypertension. 4. Hyperlipidemia. 5. Coronary artery disease. 6. Possible diabetes. 7. Chronic kidney disease. 8. Dementia 9. History of BPH 10. Chronic pain. During the course of the hospitalization, the following took place: Put him on clear liquid diet, started IV fluids. Monitored H&H. Hemoglobin had already dropped from 13.6-10.7. Plavix was held initially. GI consulted Put on PPI Given DuoNeb q.i.d. and p.r.n SCDs for DVT Monitored blood sugar. The patient apparently had [place] DNR, he wished to maintain that in the hospital. DNR ordered GI evaluated patient, recommended colonoscopy patient did drop hemoglobin, he had increase rectal bleeding with clots Patient was given 2 units of packed cells, posttransfusion H&H stable Patient underwent colonoscopy on 10/12/2016, was found with diverticular disease and diffuse blood Patient's diet was advanced, tolerated well, no nausea, no vomiting, no abdominal pain Patient did have bowel movements after colonoscopy, they were brown in color, no longer bleeding Per gastroenterology recommendations, okay to start aspirin. Recommended to hold hold plavix for 1 wk , if no bleeding , may resume plavix. This was discussed with patient Patient was off for home health care, case management consulted. Patient declined home health care Patient was discharged home in stable condition Pt Condition on Discharge: Stable Discharge Disposition: Discharge Home Discharge Instructions DIET: Follow Instructions for: Heart Healthy Diet Fluid Restrictions: none Activities you can perform: Regular-No Restrictions Follow up Referrals: Appointment for Follow Up - 2 Weeks with Brittani Bach MD Gastroenterology - 3 Weeks PCP Follow-up - 1 Week New Medications: Aspirin (Aspirin) 81 Mg Tabdr 81 MG PO DAILY cad #30 TAB Continued Medications: Amlodipine (Amlodipine) 5 Mg Tab 5 MG PO DAILY Blood Pressure Management Ref 0 TAB Budesonide-Formoterol Inh (Symbicort Inh) 160-4.5 Mcg/Act Aero 2 PUFF INH Q12HR Ref 0 INHALER Donepezil (Donepezil) 10 Mg Tab 10 MG PO HS Dementia Ref 0 TAB Escitalopram (Lexapro) 5 Mg Tab 5 MG PO DAILY Ref 0 TAB Hydrochlorothiazide (Hydrochlorothiazide) 25 Mg Tab 25 MG PO DAILY Ref 0 TAB Ipratropium-Albuterol Inh (Combivent Respimat Inh) 20-100 Chcf/Act Aero 2 PUFF INH TID Asthma Management #1 Ref 0 INHALER Ipratropium-Albuterol Inh (Combivent Respimat Inh) 20-100 Chcf/Act Aero 1 PUFF INH QID Asthma Management Ref 0 INHALER Isosorbide Mononitrate ER (Isosorbide Mononitrate ER) 30 Mg Cyn 30 MG PO DAILY Prevent Chest Pain Ref 0 TAB Lisinopril (Lisinopril) 10 Mg Tab 10 MG PO DAILY Ref 0 TAB Metoprolol Tartrate (Metoprolol Tartrate) 25 Mg Tab 25 MG PO BID Ref 0 TAB Oxycodone (Oxycodone) 5 Mg Cap 5 MG PO Q6H PRN PAIN Ref 0 CAP Pravastatin (Pravastatin) 80 Mg Tab 80 MG PO DAILY Cholesterol Management Ref 0 TAB Primidone (Primidone) 50 Mg Tab 100 MG PO HS Control Seizures Ref 0 TAB Tamsulosin (Tamsulosin) 0.4 Mg Cap 0.4 MG PO HS Manage Prostate Problems Ref 0 CAP Tiotropium Inh (Spiriva Respimat Inh) 2.5 Mcg/Act Aero 2 PUFF INH DAILY 2.5 mcg = 1 inhalation COPD Ref 0 INHALER Discontinued Medications: Clopidogrel (Plavix) 75 Mg Tab 75 MG PO DAILY Blood Clot Prevention Ref 0 TAB Sophia BeasleyP Oct 19, 2016 18:37
== END 2016-10-14 14:05 | disposition home or self-care (01) | DRG 378 ==
LOC: NEPE 09:24 → NEDA 11:12 → INTOOBSV 11:12 → NEPGCP 14:23 → OBSVTOIN 10-12 09:18 → N07A 10-12 15:27
PROVIDERS: ADMIT Specialist; ATTEND Specialist
PROC: 0DJD8ZZ Inspection of Lower Intestinal Tract, Via Natural or Artificial Opening Endoscopic (ICD-10-PCS; 2016-10-12)
PROC: 30233N1 Transfusion of Nonautologous Red Blood Cells into Peripheral Vein, Percutaneous Approach (ICD-10-PCS; principal; 2016-10-12 09:29)
DX: K57.91 Diverticulosis of intestine, part unspecified, without perforation or abscess with bleeding (principal); E87.1 Hypo-osmolality and hyponatremia; Z99.81 Dependence on supplemental oxygen; F03.90 Unspecified dementia, unspecified severity, without behavioral disturbance, psychotic disturbance, mood disturbance, and anxiety; J44.9 Chronic obstructive pulmonary disease, unspecified; D62 Acute posthemorrhagic anemia; I12.9 Hypertensive chronic kidney disease with stage 1 through stage 4 chronic kidney disease, or unspecified chronic kidney disease; I25.10 Atherosclerotic heart disease of native coronary artery without angina pectoris; N40.0 Benign prostatic hyperplasia without lower urinary tract symptoms; E78.5 Hyperlipidemia, unspecified; G89.29 Other chronic pain; M54.9 Dorsalgia, unspecified; Z66 Do not resuscitate; N18.3 Chronic kidney disease, stage 3 (moderate); E87.6 Hypokalemia; H91.90 Unspecified hearing loss, unspecified ear; Z79.02 Long term (current) use of antithrombotics/antiplatelets; Z87.891 Personal history of nicotine dependence; Z95.5 Presence of coronary angioplasty implant and graft
CPT/HCPCS: 36430; 80048; 80053; 85014; 85018; 85025; 85027; 85610; 86850; 86900; 86901; 86920; 93005; 96360; C9113; G0378; J7030; J7050; P9016

== ENCOUNTER 2016-11-13 15:40 | Inpatient (IN) | payer OTHER, MEDICARE ==
[~2016-11-13] VITALS: Ht 165.1 cm; Wt 77.0 kg
[2016-11-13] VITALS (8 sets, daily range): BP systolic 132–180; BP diastolic 69–95; PULSE 97–106; RESP 18–28; TEMP 98.1; O2SAT 86–95
[~2016-11-13 15:40] MED LIST: AMLO5TAB2 PO; ASPI1TAB69 PO; DONE10TA7 PO; HYDR25TA5 PO; IPRAAER INH; ISOS30TA3 PO; LEXA5TAB PO; LISI10TA3 PO; METO25TA3 PO; OXYC1CAP PO; PRAV80TA2 PO; PRIM50TA5 PO; SYMB160A INH; TAMS0.4C4 PO; TIOT12.9 INH
[2016-11-13] MEDS ORDERED: SODIUM CHLORIDE 0.9% FLUSH 5 ML FLUSH IVF PRN (18:15)
[2016-11-13] MEDS ORDERED: methylPREDNISolone SOD SUCC 125 MG/2 ML VIAL IVP ONE (18:15)
--- NOTE | 2016-11-13 18:15 | PD ---
HPI Chief Complaint: Respiratory Symptoms Time Seen by Provider: 17:49 Travel History International Travel<30 days: No Contact w/Intl Traveler<30days: No Traveled to known affect area: No History of Present Illness HPI 86yo M with PMH of HTN, HLD, CAD, BPH, COPD on home O2, dementia presents to the ED with c/o sob for 2-3 days. Pt states he had fever yesterday. + Productive cough. Denies any chest pain, n/v, abdominal pain, focal weakness or numbness. Pt states he uses a concentrator for oxygen and it was not helping. Pt was admitted 10/12/16-10/14/16 for diverticular GI bleed. PFSH Past Medical History Hx Anticoagulant Therapy: Yes (PLAVIX) Blood Disorders: No Anxiety: No Depression: Yes Heart Rhythm Problems: No Cancer: No Cardiovascular Problems: Yes High Cholesterol: Yes Chest Pain: No Congestive Heart Failure: No COPD: Yes Diabetes: No Genitourinary: Yes (STENTS IN KIDNEYS) Hypertension: Yes Immune Disorder: No Musculoskeletal: Yes Neurologic: Yes Reproductive: No Respiratory: Yes (COPD) Past Surgical History Body Medical Devices: heart and kidney stents Cardiac Surgery: Yes (STENTS) Social History Alcohol Use: No Tobacco Use: No Substance Use: No Allergies-Medications (Allergen,Severity, Reaction): Coded Allergies: No Known Allergies (Unverified , 11/13/16) Reported Meds & Prescriptions Reported Meds & Active Scripts Active Aspirin 81 Mg Tabdr 81 Mg PO DAILY Reported Hydrochlorothiazide 25 Mg Tab 25 Mg PO DAILY Symbicort Inh (Budesonide/Formoterol Fumarate) 160-4.5 Mcg/Act Aero 2 Puff INH Q12HR Spiriva Respimat Inh (Tiotropium Inh) 2.5 Mcg/Act Aero 2 Puff INH DAILY 2.5 mcg = 1 inhalation Primidone 50 Mg Tab 100 Mg PO HS Pravastatin 80 Mg Tab 80 Mg PO DAILY Oxycodone (Oxycodone HCl) 5 Mg Cap 5 Mg PO Q6H PRN Lexapro (Escitalopram Oxalate) 5 Mg Tab 5 Mg PO DAILY Combivent Respimat Inh (Ipratropium-Albuterol Inh) 20-100 Longterm/Act Aero 1 Puff INH QID Donepezil 10 Mg Tab 10 Mg PO HS Amlodipine (Amlodipine Besylate) 5 Mg Tab 5 Mg PO DAILY Combivent Respimat Inh (Ipratropium-Albuterol Inh) 20-100 Longterm/Act Aero 2 Puff INH TID Lisinopril 10 Mg Tab 10 Mg PO DAILY Isosorbide Mononitrate ER (Isosorbide Mononitrate) 30 Mg Cyn 30 Mg PO DAILY Tamsulosin (Tamsulosin HCl) 0.4 Mg Cap 0.4 Mg PO HS Metoprolol Tartrate 25 Mg Tab 25 Mg PO BID Review of Systems Except as stated in HPI: all other systems reviewed are Neg Physical Exam Narrative GENERAL: 86yo M in moderate distress. SKIN: Warm and dry. HEAD: Atraumatic. Normocephalic. NECK: Trachea midline. No JVD. CARDIOVASCULAR: Regular rate and rhythm. No murmur appreciated. RESPIRATORY: + accessory muscle use. Speaks a few words at a time. Poor air entry. Wheezing bilaterally. Tachypneic. GASTROINTESTINAL: Abdomen soft, non-tender, nondistended. Hepatic and splenic margins not palpable. MUSCULOSKELETAL: No obvious deformities. No clubbing. No cyanosis. +Lower ext edema. NEUROLOGICAL: Awake and alert. No obvious cranial nerve deficits. Motor grossly within normal limits. Normal speech. PSYCHIATRIC: Appropriate mood and affect; insight and judgment normal. Data Data Last Documented VS Vital Signs Date Time Temp Pulse Resp B/P Pulse Ox O2 Delivery O2 Flow Rate FiO2 11/13/16 19:12 97 24 132/95 95 Nasal Cannula 2 11/13/16 15:42 98.1 Orders Electrocardiogram (11/13/16 ) Complete Blood Count With Diff (11/13/16 18:02) Basic Metabolic Panel (Bmp) (11/13/16 18:02) B-Type Natriuretic Peptide (11/13/16 18:02) Act Partial Throm Time (Ptt) (11/13/16 18:02) Prothrombin Time / Inr (Pt) (11/13/16 18:02) Ckmb (Isoenzyme) Profile (11/13/16 18:02) Troponin I (11/13/16 18:02) Arterial Blood Gas (Abg) (11/13/16 18:02) Blood Culture (11/13/16 18:02) Iv Access Insert/Monitor (11/13/16 18:02) Ecg Monitoring (11/13/16 18:02) Oximetry (11/13/16 18:02) Oxygen Administration (11/13/16 18:02) Chest, Single Ap (11/13/16 18:02) Sodium Chloride 0.9% Flush (Ns Flush) (11/13/16 18:15) Methylprednisolone So Succ Inj (Solumedr (11/13/16 18:15) Albuterol-Ipratropium Neb (Duoneb Neb) (11/13/16 18:15) CKMB (11/13/16 18:00) CKMB% (11/13/16 18:00) Albuterol Neb (Albuterol Neb) (11/13/16 19:15) Lactic Acid Sepsis Protocol (11/13/16 19:02) Sodium Chlor 0.9% 1000 Ml Inj (Ns 1000 M (11/13/16 19:15) Vancomycin Inj (Vancomycin Inj) (11/13/16 19:15) Piperacil-Tazo 2.25 Gm Premix (Zosyn 2.2 (11/13/16 19:15) Admit Order (Ed Use Only) (11/13/16 19:20) Labs Laboratory Tests Test 11/13/16 11/13/16 11/13/16 18:00 18:06 19:10 White Blood Count 11.2 TH/MM3 Red Blood Count 3.94 MIL/MM3 Hemoglobin 12.2 GM/DL Hematocrit 35.9 % Mean Corpuscular Volume 91.0 FL Mean Corpuscular Hemoglobin 30.9 PG Mean Corpuscular Hemoglobin 34.0 % Concent Red Cell Distribution Width 15.2 % Platelet Count 215 TH/MM3 Mean Platelet Volume 7.5 FL Neutrophils (%) (Auto) 64.9 % Lymphocytes (%) (Auto) 17.3 % Monocytes (%) (Auto) 9.4 % Eosinophils (%) (Auto) 7.8 % Basophils (%) (Auto) 0.6 % Neutrophils # (Auto) 7.3 TH/MM3 Lymphocytes # (Auto) 1.9 TH/MM3 Monocytes # (Auto) 1.0 TH/MM3 Eosinophils # (Auto) 0.9 TH/MM3 Basophils # (Auto) 0.1 TH/MM3 CBC Comment DIFF FINAL Differential Comment Prothrombin Time 12.3 SEC Prothromb Time International 1.1 RATIO Ratio Activated Partial 26.6 SEC Thromboplast Time Sodium Level 134 MEQ/L Potassium Level 3.6 MEQ/L Chloride Level 98 MEQ/L Carbon Dioxide Level 24.1 MEQ/L Anion Gap 12 MEQ/L Blood Urea Nitrogen 23 MG/DL Creatinine 1.65 MG/DL Estimat Glomerular Filtration 40 ML/MIN Rate Random Glucose 95 MG/DL Calcium Level 8.8 MG/DL Total Creatine Kinase 1561 U/L Creatine Kinase MB 20.9 NG/ML Creatine Kinase MB % 1.3 % Troponin I 0.02 NG/ML B-Type Natriuretic Peptide 69 PG/ML Blood Gas Puncture Site RT RADIAL Blood Gas Patient Temperature 98.6 Blood Gas HCO3 23 mmol/L Blood Gas Base Excess -1.6 mmol/L Blood Gas Oxygen Saturation 93 % Arterial Blood pH 7.40 Arterial Blood Partial 38 mmHg Pressure CO2 Arterial Blood Partial 89 mmHG Pressure O2 Arterial Blood Oxygen Content 16.3 Vol % Arterial Blood 2.2 % Carboxyhemoglobin Arterial Blood Methemoglobin 1.9 % Blood Gas Hemoglobin 12.4 G/DL Oxygen Delivery Device NASAL CANNULA Blood Gas Liter Flow 3 L/M Lactic Acid Level 1.3 mmol/L MDM Medical Decision Making Medical Screen Exam Complete: Yes Emergency Medical Condition: Yes Interpretation(s) EKG: NSR 86bpm. LAD. Q waves III, aVF. Poor baseline with motion artifact. Needs repeat when more comfortable. Differential Diagnosis COPD exacerbation vs. Pneumonia vs. ACS Narrative Course 86yo M with sob for 2-3 days. Impression is COPD exacerbation. Pt's saturation at 88% on RA. Pt given 4L NC and saturating at 95%. Labs reviewed, mild leukocytosis at 11.2. Elevated BUN/creatinine at 23/1.65. CPK 1561. Labs consistent with dehydration, rhabdomyolysis. Pt given NS IVF. Troponin 0.02. CXR showed minimal increased density at bases representing atelectasis and consolidation. Pt covered with vancomycin and zosyn since pt was just hospitalized. Admitted to hospitalist for HCAP and COPD exacerbation. Diagnosis Primary Impression: COPD (chronic obstructive pulmonary disease) Qualified Code: J44.1 - Chronic obstructive pulmonary disease with acute exacerbation Admitting Information Admitting Physician Requests: Admit VillanuevaClaudette Nov 13, 2016 18:15
[2016-11-13 18:18] LABS: BLOOD GAS BASE EXCESS -1.6 mmol/L (-2-2); BLOOD GAS CARBOXYHEMOGLOBIN 2.2 % (0-4); BLOOD GAS HCO3 23 mmol/L (22-26); BLOOD GAS METHEMOGLOBIN 1.9 % (0-2); BLOOD GAS O2 HGB SATURATION 93 % (90-100); BLOOD GAS OXYGEN CONTENT 16.3 Vol % (12.0-20.0); BLOOD GAS PCO2 38 mmHg (38-42); BLOOD GAS PO2 89 mmHG (61-120); BLOOD GAS TOTAL HGB 12.4 G/DL (12.0-16.0); CRITICAL VALUE NO; DRAW SITE RT RADIAL; LITER FLOW 3 L/M; NUMBER OF ARTERIAL PUNCTURES 1; OXYGEN DEVICE NASAL CANNULA; STAT YES; TEMP CORR TO 98.6; ULNAR PULSE PRESENT
[2016-11-13 18:22] LABS: AUTOMATED NEUTROPHIL # 7.3 TH/MM3 (1.8-7.7); BASOPHIL # 0.1 TH/MM3 (0-0.2); BASOPHIL % 0.6 % (0.0-2.0); EOSINOPHIL # 0.9 TH/MM3 (0-0.4); EOSINOPHIL % 7.8 % (0.0-4.0); HEMATOCRIT 35.9 % (39.0-51.0); HEMO FLAGS DIFF FINAL; LYMPH % 17.3 % (9.0-44.0); LYMPHOCYTE # 1.9 TH/MM3 (1.0-4.8); MEAN CORPUSCULAR HEMOGLOBIN 30.9 PG (27.0-34.0); MONO % 9.4 % (0.0-8.0); NEUT % 64.9 % (16.0-70.0); PLATELET COUNT 215 TH/MM3 (150-450); RED BLOOD COUNT 3.94 MIL/MM3 (4.50-5.90); RED CELL DISTRIBUTION WIDTH 15.2 % (11.6-17.2); WHITE BLOOD COUNT 11.2 TH/MM3 (4.0-11.0)
[2016-11-13] MEDS: RESP: ALBUTEROL 2.5 MG/IPRATROPIUM 0.5 MG NEB (SCH) INH ×2 (18:23→18:24)
[2016-11-13 18:37] LABS: BICARBONATE 24.1 MEQ/L (21.0-32.0); POTASSIUM 3.6 MEQ/L (3.5-5.1)
[2016-11-13 18:43] LABS: APTT (PATIENT) 26.6 SEC (24.3-30.1); INTERNATIONAL NORMALIZED RATIO 1.1 RATIO; PROTHROMBIN TIME - PATIENT 12.3 SEC (9.8-11.6)
--- NOTE | 2016-11-13 18:58 | RADRPT ---
EXAM DATE/TIME: 11/13/2016 18:02 [place] COMPARISON: No previous studies available for comparison. INDICATIONS: Shortness of breath, cough, congestion. MEDICAL HISTORY: Hypertension. Myocardial infarction. SURGICAL HISTORY: Coronary artery stent. ENCOUNTER: Initial ACUITY: 2 days PAIN SCORE: 0/10 LOCATION: Bilateral chest FINDINGS: The heart size is within normal limits. The aorta is mildly tortuous. There is some minimally incre ased density identified at the bases. The mid and upper lungs are clear. A significant effusion is not seen. CONCLUSION: Minimal increased density at the bases likely representing some mild atelectasis or consolidation. Anthony Che MD on November 13, 2016 at 18:50 Board Certified Radiologist. This report was verified electronically.
[2016-11-13 19:04] LABS: CKMB 20.9 NG/ML (0.5-3.6)
[2016-11-13] MEDS ORDERED: PIPERACIL-TAZO 2.25 GM PREMIX 50 ML IV ONE (19:15)
[2016-11-13] MEDS ORDERED: VANCOMYCIN INJ 1,000 MG in SODIUM CHLOR 0.9% 250 ML INJ 250 ML IV ONE ×2 (19:15→21:00)
[2016-11-13] MEDS ORDERED: RESP: ALBUTEROL 2.5 MG/3 ML NEB (PRN) NEB (19:15)
[2016-11-13] MEDS ORDERED: SODIUM CHLOR 0.9% 1000 ML INJ 1,000 ML IV ONE (19:15)
[2016-11-13] MEDS ORDERED: ONDANSETRON HCL 4 MG/2 ML VIAL IVP PRN (20:15)
[2016-11-13] MEDS ORDERED: BISACODYL 10 MG SUPP PR PRN (20:15)
[2016-11-13] MEDS ORDERED: SENNOSIDES 8.6 MG TAB PO PRN (20:15)
[2016-11-13] MEDS ORDERED: SODIUM CHLORIDE 0.9% FLUSH 5 ML FLUSH FLUSH PRN (20:15)
[2016-11-13] MEDS ORDERED: MAGNESIUM HYDROXIDE SUSP 30 ML CUP PO PRN (20:15)
[2016-11-13] MEDS ORDERED: NALOXONE HCL 0.4 MG/ML AMP IV PRN (20:15)
[2016-11-13] MEDS ORDERED: ACETAMINOPHEN 325 MG TAB PO PRN (20:15)
[2016-11-13] MEDS ORDERED: Vancomycin Consult Pharmacy 1 EA OTHER SCH (20:30)
[2016-11-13] MEDS ORDERED: PILL SPLITTER OTHER PRN (20:45)
[2016-11-13] MEDS ORDERED: NON-FORMULARY DRUG (Ipratropium-Albuterol Inh (Combivent Respimat Inh) 1 PUFF) INH SCH (21:00)
[2016-11-13] MEDS: SODIUM CHLORIDE 0.9% FLUSH 5 ML FLUSH FLUSH SCH (21:00)
[2016-11-13] MEDS: SODIUM CHLOR 0.9% 1000 ML INJ 1,000 ML IV SCH (22:28)
[2016-11-13] MEDS: RESP: ALBUTEROL 2.5 MG/IPRATROPIUM 0.5 MG NEB (PRN) NEB (22:45)
[2016-11-13] MEDS: METOPROLOL TARTRATE 25 MG TAB PO SCH (23:09)
[2016-11-13] MEDS: BUDESONIDE-FORMOTEROL 160/4.5 MCG INHALER INH SCH ×2 (23:14→23:32)
[2016-11-13] MEDS: HEPARIN SODIUM - SQ 10,000 UNITS/ML VIAL SQ SCH (23:15)
[2016-11-13] MEDS: TAMSULOSIN HCL 0.4 MG CAP PO SCH (23:30)
[2016-11-13] MEDS: PRIMIDONE 50 MG TAB PO SCH (23:31)
[2016-11-13] MEDS: CEFEPIME INJ 1,000 MG in SODIUM CHLORIDE 0.9% INJ 100 ML IV SCH (23:33)
[2016-11-13] MEDS: DONEPEZIL HCL 5 MG TAB PO SCH (23:37)
[2016-11-14] VITALS (12 sets, daily range): BP systolic 110–196; BP diastolic 60–84; PULSE 69–98; RESP 16–28; TEMP 97.6–98; O2SAT 94–100
[2016-11-14] MEDS: methylPREDNISolone SOD SUCC 40 MG/1 ML VIAL IV PUSH SCH ×5 (00:17→23:39)
[2016-11-14 05:10] LABS: AUTOMATED NEUTROPHIL # 5.5 TH/MM3 (1.8-7.7); BASOPHIL % 0.1 % (0.0-2.0); HEMATOCRIT 36.5 % (39.0-51.0); HEMO FLAGS DIFF FINAL; LYMPH % 9.5 % (9.0-44.0); LYMPHOCYTE # 0.6 TH/MM3 (1.0-4.8); MEAN CELL VOLUME 91.8 FL (80.0-100.0); MEAN CORPUSCULAR HEMOGLOBIN 30.7 PG (27.0-34.0); MEAN CORPUSCULAR HGB CONC 33.5 % (32.0-36.0); MONO % 1.1 % (0.0-8.0); NEUT % 89.3 % (16.0-70.0); PLATELET COUNT 210 TH/MM3 (150-450); RED BLOOD COUNT 3.98 MIL/MM3 (4.50-5.90); RED CELL DISTRIBUTION WIDTH 15.5 % (11.6-17.2); WHITE BLOOD COUNT 6.2 TH/MM3 (4.0-11.0)
[2016-11-14 05:25] LABS: BICARBONATE 24.9 MEQ/L (21.0-32.0)
[2016-11-14 05:27] LABS: INDIRECT BILIRUBIN 0.3 MG/DL (0.0-0.8); TOTAL BILIRUBIN ADULT 0.4 MG/DL (0.2-1.0)
[2016-11-14] MEDS: RESP: ALBUTEROL 2.5 MG/IPRATROPIUM 0.5 MG NEB (PRN) NEB ×2 (07:47→15:59)
[2016-11-14] MEDS: HEPARIN SODIUM - SQ 10,000 UNITS/ML VIAL SQ SCH ×2 (08:02→22:04)
[2016-11-14] MEDS: ASPIRIN EC 81 MG TABEC PO SCH (08:02)
[2016-11-14] MEDS: ESCITALOPRAM OXALATE 10 MG TAB PO SCH (08:02)
[2016-11-14] MEDS: SODIUM CHLORIDE 0.9% FLUSH 5 ML FLUSH FLUSH SCH ×2 (08:03→22:00)
[2016-11-14] MEDS: amLODIPine BESYLATE 5 MG TAB PO SCH (08:03)
[2016-11-14] MEDS: PRAVASTATIN SOD 80 MG TAB PO SCH (08:03)
[2016-11-14] MEDS: HYDROCHLOROTHIAZIDE 25 MG TAB PO SCH (08:03)
[2016-11-14] MEDS: LISINOPRIL 10 MG TAB PO SCH (08:03)
[2016-11-14] MEDS: SODIUM CHLOR 0.9% 1000 ML INJ 1,000 ML IV SCH ×2 (08:03→23:44)
[2016-11-14] MEDS: METOPROLOL TARTRATE 25 MG TAB PO SCH ×2 (08:03→21:00)
[2016-11-14] MEDS: CEFEPIME INJ 1,000 MG in SODIUM CHLORIDE 0.9% INJ 100 ML IV SCH ×2 (08:03→22:03)
[2016-11-14] MEDS ORDERED: PT:COMBIVENT RESPIMAT INH SCH (09:00)
[2016-11-14] MEDS ORDERED: NON-FORMULARY DRUG (Ipratropium-Albuterol Inh (Combivent Respimat Inh) 2 PUFF) INH SCH (09:00)
[2016-11-14] MEDS ORDERED: NON-FORMULARY DRUG (Tiotropium Inh (Spiriva Respimat Inh) 2 PUFF) INH SCH (09:00)
[2016-11-14] MEDS ORDERED: PT:SPIRIVA RESPIMAT INH SCH (09:00)
--- NOTE | 2016-11-14 09:29 | MH ---
cc: ROBB ELLSWORTH MD DATE OF ADMISSION: 11/13/2016 DATE OF : 1930 TRAVEL HISTORY: None in the past 30 days. CHIEF COMPLAINT Shortness of breath. HISTORY OF PRESENT ILLNESS This is a pleasant 86-year-old white male who has a significant history of COPD and dementia. He complains of shortness of breath uncontrollable for the past 2-3 days. The patient did note some fever yesterday, he is positive for productive cough, thick, yellow-green mucus and has been unable to sleep for the past couple of days. He does use 02 at home and has family members who support and help him with his care. The patient denies any chest pain, denies headache, denies any change in appetite except for the last day or two. Denies any weight gain or weight loss and appears to have been in his normal state of health up until these last few days. The patient was recently admitted to the hospital on 10/12/2016, according to the record for a diverticular GI bleed but has no complaints of any symptoms of abdominal pain or changes in his stools. He did have a bowel movement yesterday. The patient is a fair historian but does ramble with some of his information at times. PAST MEDICAL HISTORY 1. Coronary artery disease. The patient takes Plavix. 2. Depression. 3. Hyperlipidemia. 4. COPD. 5. Chronic kidney disease. 6. Arthritis. 7. Dementia. 8. BPH. 9. Previous tobacco user. PAST SURGICAL HISTORY 1. Cardiac stents. 2. Kidney stents. ALLERGIES None known. MEDICATION Medications reported: 1. Hydrochlorothiazide 25 mg daily. 2. Symbicort inhaler two puffs every 12 hours as needed. 3. Spiriva two puffs daily. 4. Primidone 100 mg at h.s. 5. Pravastatin 80 mg daily. 6. Oxycodone 5 mg q. 6 p.r.n. for pain. 7. Lexapro 5 mg daily. 8. Combivent Respimat inhaler one puff q.i.d. 9. Donepezil 10 mg p.o. at h.s. 10. Amlodipine 5 mg daily. 11. Lisinopril 10 mg daily. 12. Isosorbide ER 30 mg daily. 13. Tamsulosin 0.4 mg at night. 14. Lopressor 25 mg b.i.d. SOCIAL EXAM The patient lives in the [address]. He is , lives alone but he still has the support of his ex- and children who live close by. The patient did smoke from the age of 14 to 61 years old but quit, which was approximately 25 years ago. Denies any alcohol. No illicit drugs. FAMILY HISTORY Cancer is all he can remember. REVIEW OF SYSTEMS A 12-point review was done. Positive findings are shortness of breath, productive cough, some bruising noted on his right mid back from a fall. Thin skin turgor. Other systems are negative or unremarkable. PHYSICAL EXAMINATION GENERAL: A 86-year-old white male who looks to be his stated age, actively dyspneic at rest with some moderate distress. SKIN: Warm, dry, thin turgor. No rashes. Bruise about 2 cm in diameter on his right mid back from a bump or a fall, healing. HEENT/NECK: Atraumatic, normocephalic. Trachea is midline. No JVD. Neck is supple. PERRLA at 2 mm. Tongue is midline. Oral cavity is slightly dry. He has no scleral icterus and no drainage from his nasal cavity or eyes. CARDIOVASCULAR: Regular rate and rhythm. Heart sounds are distant but no murmurs, rubs or gallops audible. Trace of edema bilateral in his lower extremities. Pulses are intact. RESPIRATORY: Expiratory wheezes noted anteriorly and posteriorly. He does have decreased breath sounds in his bases bilateral. He is using his accessory muscles to breathe at rest. ABDOMEN: Soft, taunt, nontender, mild distension with tympany. Active bowel sounds in all four quadrants. MUSCULOSKELETAL: He moves his extremities with purpose. His hand qa analyst are equal. He is positive for the lower extremity edema bilateral but no clubbing, no cyanosis. NEUROLOGIC: He is alert, oriented x 3-4, a fair historian. Speech is clear. PSYCHIATRIC: Appropriate mood for the most part. Conversation jumps around. Insight is fairly normal for the moment. DIAGNOSTIC DATA On 11/14/2016, sodium 139, potassium 4, chloride 104, carbon dioxide 24.9, anion gap 10, BUN 27, creatinine 1.69, GFR 39, glucose initially was 95 on 11/13/2016 and is increased to 144, lactic acid 1.3, calcium 8.8, AST 57, ALT 36, total creatinine kinase 1561. CK MB 20.9, troponin 0.02, BNP 69, total protein 7.3, albumin 3.7. CBC initially white count on 11/13/2016 in the ER was 11.2, it is now 6.2, hemoglobin 12.2, hematocrit 36.5, neutrophil absolute is 89.3, lymphocytes 0.6. Blood gas on ER admission was on 3 liters nasal cannula, bicarb 23, base excess negative 1.6, 02 sat 93, PH 7.4, PC02 38, P02 89. IMAGING STUDIES Chest x-ray shows minimal increased density at the bases, likely to represent some mild atelectasis or consolidation. ASSESSMENT AND PLAN Lactic acid sepsis with pneumonia and leukocytosis, COPD exacerbation, anemia, hypertension, dementia, coronary artery disease, chronic kidney disease. Our plan is to admit, reconcile the patient's medications and start him on IV vancomycin and Maxipime. IV steroids for his shortness of breath, nebulizer albuterol treatments as well as Combivent treatments. Vital signs q. 4 and p.r.n. if needed. Bedrest with out of bed only with assistance. Cardiac monitoring, heart healthy diet, gentle hydration whether it be IV or p.o. Bowel regime with stool softeners and/or laxative p.r.n. Will monitor his labs which included a BMP and a CBC this morning. The patient was started on heparin subcu for DVT prophylaxis. He has also been on Plavix in the past. ASA (aspirin). He did receive a normal saline bolus on admission. EKGs, blood culture is pending. 02 sat monitoring. We will follow. Dictated by: JUAN Johnson MD LAURA Pillai/SHEEBA /8:07 AM /9:22 AM
[2016-11-14] MEDS: ISOSORBIDE MONONITRATE 30 MG TAB PO SCH (09:50)
--- NOTE | 2016-11-14 16:03 | EKG ---
Date Performed: 11/13/2016 Time Performed: 17:55:30 PTAGE: 86 years EKG: Sinus rhythm POSSIBLE RIGHT VENTRICULAR CONDUCTION DELAY LEFT ANTERIOR FASCICULAR BLOCK INFERIOR MYOCARDIAL INFAR CTION Compared to prior tracing no significant change ABNORMAL ECG INTERPRETATION BASED ON A DEFAULT AGE OF 40 YEARS PREVIOUS TRACING : 10/12/2016 08.56 DOCTOR: Maribeth Kendrick Interpretating Date/Time 11/14/2016 15:59:20
[2016-11-14] MEDS ORDERED: VANCOMYCIN INJ 800 MG in SODIUM CHLOR 0.9% 250 ML INJ 250 ML IV SCH (21:00)
[2016-11-14] MEDS: BUDESONIDE-FORMOTEROL 160/4.5 MCG INHALER INH SCH (22:01)
[2016-11-14] MEDS: VANCOMYCIN 1,000 MG/NS 250 ML IV SCH ×2 (22:02)
[2016-11-14] MEDS: TAMSULOSIN HCL 0.4 MG CAP PO SCH (22:06)
[2016-11-14] MEDS: DONEPEZIL HCL 5 MG TAB PO SCH (22:07)
--- NOTE | 2016-11-14 22:07 | HP.UPD ---
H&P Update Note This is a very pleasant 86-year-old male seen And examined by the undersigned today At [facility] emergency department in room a 5. He is being admitted with COPD exacerbation. Also, there is suspicion of a possible early pneumonia. Patient has renal dysfunction. He is being treated with steroids, supplemental oxygen, antibiotics, bronchodilators and resuming his home medications. Further plans depend upon his hospital course Leni Mccray MD Nov 14, 2016 22:05
[2016-11-14] MEDS: PRIMIDONE 50 MG TAB PO SCH (23:36)
[2016-11-15] VITALS (9 sets, daily range): BP systolic 133–195; BP diastolic 62–80; PULSE 62–80; RESP 20–26; TEMP 97.1–97.5; O2SAT 98–99
[2016-11-15] MEDS: METOPROLOL TARTRATE 25 MG TAB PO SCH ×2 (06:21→22:23)
[2016-11-15] MEDS: methylPREDNISolone SOD SUCC 40 MG/1 ML VIAL IV PUSH SCH ×3 (06:22→17:05)
[2016-11-15] MEDS: ASPIRIN EC 81 MG TABEC PO SCH (08:18)
[2016-11-15] MEDS: CEFEPIME INJ 1,000 MG in SODIUM CHLORIDE 0.9% INJ 100 ML IV SCH ×2 (08:18→22:22)
[2016-11-15] MEDS: ISOSORBIDE MONONITRATE 30 MG TAB PO SCH (08:18)
[2016-11-15] MEDS: PRAVASTATIN SOD 80 MG TAB PO SCH (08:19)
[2016-11-15] MEDS: HYDROCHLOROTHIAZIDE 25 MG TAB PO SCH (08:19)
[2016-11-15] MEDS: ESCITALOPRAM OXALATE 10 MG TAB PO SCH (08:19)
[2016-11-15] MEDS: HEPARIN SODIUM - SQ 10,000 UNITS/ML VIAL SQ SCH ×2 (08:19→22:23)
[2016-11-15] MEDS: amLODIPine BESYLATE 5 MG TAB PO SCH (08:19)
[2016-11-15] MEDS: LISINOPRIL 10 MG TAB PO SCH (08:19)
[2016-11-15] MEDS: BUDESONIDE-FORMOTEROL 160/4.5 MCG INHALER INH SCH ×2 (08:19→21:00)
[2016-11-15] MEDS: SODIUM CHLORIDE 0.9% FLUSH 5 ML FLUSH FLUSH SCH ×2 (08:20→21:00)
--- NOTE | 2016-11-15 10:58 | HHI.PR ---
Subjective Subjective Remarks anxious angry about diet, wants to eat regular food or he will fire doctor no cp sob with minimal activity some cough no fever bp elevated Review of Systems Constitutional Constitutional Remarks Pertinent review of systems difficult to complete, patient angry Vitals/Results Intake & Output 11/14/16 11/14/16 11/15/16 15:00 23:00 07:00 Intake Total 240 ml 648 ml 240 ml Output Total 550 ml 300 ml 600 ml Balance -310 ml 348 ml -360 ml Intake Oral 240 ml 480 ml 240 ml IV Total 168 ml Output Urine Total 550 ml 300 ml 600 ml # Voids 2 # Bowel Movements 1 1 3 Vital Signs Vital Signs Date Time Temp Pulse Resp B/P Pulse Ox O2 Delivery O2 Flow Rate FiO2 11/15/16 08:00 97.5 65 20 195/79 99 11/15/16 04:00 97.1 80 24 173/80 98 11/15/16 00:00 97.5 68 26 153/70 98 11/14/16 20:31 96 Nasal Cannula 3.00 11/14/16 20:00 97.6 69 20 137/61 97 11/14/16 20:00 74 11/14/16 16:00 97.9 72 20 142/65 98 11/14/16 13:00 78 18 146/78 96 Nasal Cannula 3 11/14/16 12:00 92 16 127/81 94 Nasal Cannula 3 11/14/16 11:00 98 16 118/81 100 Nasal Cannula 3 CBC/BMP: 11/14/16 0442 11/14/16 0442 Physical Exam General General Appearance: Well Developed, No Acute Distress, Anxious Eyes Eye Exam: Pupils Equal, Pupils Reactive Ears & Nose Ears & Nose Exam: Nasal Mucosa [place] Throat Throat Exam: Oral Mucosa [place] & Moist Neck Neck Exam: Neck Supple, Trachea Midline Pulmonary Resp Exam: Diminished Breath Sounds Resp Remarks Expiratory wheezes Cardiology CV Exam: Regular Gastrointestinal/Abdomen GI Exam: Soft, Non-Tender, Bowel Sounds Present, Non-Distended Musculoskeletal MS Exam: Joints Intact Integumentary Skin Exam: Warm, Dry Extremeties Extremities Exam: No Edema, Pedal Pulses Palpable Neurologic Neuro Exam: Alert, Awake, Oriented, Speech Clear, Moving All Extremities, No Focal Deficits Assessment/Plan Problem List: (1) COPD (chronic obstructive pulmonary disease) (2) CAD (coronary artery disease) (3) Hypertension (4) CKD (chronic kidney disease) (5) BPH (benign prostatic hyperplasia) Assessment/Plan Continue with oxygen Continue DuoNeb's Continue with IV Solu-Medrol Continue with empiric antibiotic Follow cultures, so far negative We'll change to regular diet, encourage patient to limit salt use Monitor renal function Continue with cautious hydration, decrease IV fluids to 30 an hour Avoid nephrotoxic agents Continue the home medications BP elevated, continue home meds, elevation likely secondary to anxiety Heparin for DVT prophylaxis Repeat laboratory work up in the morning next D/W RN D/W Dr. Mccray D/W pt This patient was seen by myself and Dr. Ingram, this note is written on his behalf Problem Qualifiers (1) COPD (chronic obstructive pulmonary disease): Qualified Code: J44.1 - Chronic obstructive pulmonary disease with acute exacerbation (2) CAD (coronary artery disease): Qualified Code: I25.10 - Coronary artery disease involving [place] coronary artery of [place] heart without angina pectoris (3) Hypertension: Qualified Code: I10 - Essential hypertension (4) CKD (chronic kidney disease): Qualified Code: N18.3 - CKD (chronic kidney disease), stage 3 (moderate) (5) BPH (benign prostatic hyperplasia): Sophia Beasley Nov 15, 2016 10:58
[2016-11-15] MEDS ORDERED: CYCLOBENZAPRINE HCL 10 MG TAB PO PRN (15:15)
[2016-11-15 16:24] LABS: BLOOD, URINE NEG (NEG); COMMENT (UR) CULT NOT INDICATED; CULTURE IF INDICATED CULT NOT INDICATED; GLUCOSE,URINE TRACE mg/dL (NEG); HYALINE CAST, URINE 1 /lpf (RARE); KETONE, URINE NEG (NEG); MUCUS URINE FEW /lpf (OCC); NITRITE,URINE NEG (NEG); PH, URINE 5.5 (5.0-8.5); URINE COLOR YELLOW (YELLW/STRAW)
[2016-11-15] MEDS: SODIUM CHLOR 0.9% 1000 ML INJ 1,000 ML IV SCH (20:30)
[2016-11-15] MEDS: guaiFENesin E.R. 600 MG TAB PO SCH (22:22)
[2016-11-15] MEDS: DONEPEZIL HCL 5 MG TAB PO SCH (22:22)
[2016-11-15] MEDS: TAMSULOSIN HCL 0.4 MG CAP PO SCH (22:23)
[2016-11-15] MEDS: PRIMIDONE 50 MG TAB PO SCH (22:23)
[2016-11-15] MEDS: VANCOMYCIN 1,000 MG/NS 250 ML IV SCH ×2 (22:29)
[2016-11-16] VITALS (7 sets, daily range): BP systolic 118–179; BP diastolic 56–74; PULSE 62–92; RESP 18–24; TEMP 97.4–98.1; O2SAT 95–99
[2016-11-16] MEDS: methylPREDNISolone SOD SUCC 40 MG/1 ML VIAL IV PUSH SCH ×3 (00:03→11:27)
[2016-11-16 06:56] LABS: HEMATOCRIT 33.1 % (39.0-51.0); MEAN CELL VOLUME 92.4 FL (80.0-100.0); MEAN CORPUSCULAR HEMOGLOBIN 30.8 PG (27.0-34.0); MEAN CORPUSCULAR HGB CONC 33.4 % (32.0-36.0); PLATELET COUNT 213 TH/MM3 (150-450); RED BLOOD COUNT 3.59 MIL/MM3 (4.50-5.90); RED CELL DISTRIBUTION WIDTH 15.4 % (11.6-17.2); REVIEW FLAG FINAL; WHITE BLOOD COUNT 10.8 TH/MM3 (4.0-11.0)
[2016-11-16 07:11] LABS: POTASSIUM 3.9 MEQ/L (3.5-5.1)
[2016-11-16] MEDS: ISOSORBIDE MONONITRATE 30 MG TAB PO SCH (08:19)
[2016-11-16] MEDS: ESCITALOPRAM OXALATE 10 MG TAB PO SCH (08:20)
[2016-11-16] MEDS: amLODIPine BESYLATE 5 MG TAB PO SCH (08:22)
[2016-11-16] MEDS: guaiFENesin E.R. 600 MG TAB PO SCH (08:22)
[2016-11-16] MEDS: PRAVASTATIN SOD 80 MG TAB PO SCH (08:22)
[2016-11-16] MEDS: METOPROLOL TARTRATE 25 MG TAB PO SCH (08:22)
[2016-11-16] MEDS: ASPIRIN EC 81 MG TABEC PO SCH (08:23)
[2016-11-16] MEDS: HYDROCHLOROTHIAZIDE 25 MG TAB PO SCH (08:23)
[2016-11-16] MEDS: LISINOPRIL 10 MG TAB PO SCH (08:23)
[2016-11-16] MEDS: CEFEPIME INJ 1,000 MG in SODIUM CHLORIDE 0.9% INJ 100 ML IV SCH (08:24)
[2016-11-16] MEDS: BUDESONIDE-FORMOTEROL 160/4.5 MCG INHALER INH SCH (08:27)
[2016-11-16] MEDS: SODIUM CHLORIDE 0.9% FLUSH 5 ML FLUSH FLUSH SCH (08:32)
[2016-11-16] MEDS: HEPARIN SODIUM - SQ 10,000 UNITS/ML VIAL SQ SCH (08:32)
--- NOTE | 2016-11-16 10:25 | HHI.FF ---
Face to Face Verification Diagnosis: (1) COPD (chronic obstructive pulmonary disease) Physical Therapy Order: Evaluate and Treat Home Health Nursing Order: Medical education Oxygen administration education Nursing assessment with vital signs [place] Order: To Evaluate: Support services I have seen patient Malachi Romero on 11/16/16. My clinical findings support the need for the requested home health care services because: Patient has SOB Deconditioned w/ increased weakness I certify that my clinical findings support that this patient is homebound because: Hx COPD- exertion dyspnea/weakness Sophia Beasley Nov 16, 2016 10:25 Leni Mccray MD Nov 16, 2016 11:57
[2016-11-16] MEDS ORDERED: PRED20 PO (10:30)
--- NOTE | 2016-11-16 10:31 | HHI.DCPOC ---
Discharge Care Plan Diagnosis: (1) COPD (chronic obstructive pulmonary disease) Your Health Problems Are: Cough Shortness of Breath Goals to Promote Your Health * To prevent worsening of your condition and complications * To maintain your health at the optimal level Directions to Meet Your Goals Take your medications as prescribed Follow your dietary instruction Follow activity as directed Keep your appointments as scheduled Take your immunizations and boosters as scheduled If your symptoms worsen call your PCP, if no PCP go to Urgent Care Center or Emergency Room Smoking is Dangerous to Your Health. Avoid second hand smoke Call the 24-hour hour crisis hotline for domestic abuse at Sophia Beasley Nov 16, 2016 10:31
--- NOTE | 2016-11-16 10:35 | HHI.PR ---
Subjective Subjective Remarks feels better wants to go home agreeable with HHC, lives alone has oxygen and neb at home no fever coughing, wheezing c/o dry eyes Review of Systems Constitutional Constitutional Remarks Pertinent review of systems completed, unreliable Vitals/Results Intake & Output 11/15/16 11/15/16 11/16/16 15:00 23:00 07:00 Intake Total 1714 ml 120 ml 480 ml Output Total 400 ml 250 ml 700 ml Balance 1314 ml -130 ml -220 ml Intake Oral 1200 ml 120 ml 480 ml IV Total 514 ml Output Urine Total 400 ml 250 ml 700 ml # Bowel Movements 0 0 0 Vital Signs Vital Signs Date Time Temp Pulse Resp B/P Pulse Ox O2 Delivery O2 Flow Rate FiO2 11/16/16 08:00 97.4 62 24 179/70 98 11/16/16 04:00 98.1 67 18 167/71 95 11/16/16 00:00 97.5 83 20 118/56 98 11/15/16 21:35 97.3 62 20 151/65 98 11/15/16 20:31 98 Nasal Cannula 3.00 11/15/16 20:00 62 11/15/16 19:50 Nasal Cannula 3.00 11/15/16 16:00 97.2 66 20 158/68 99 11/15/16 12:00 97.3 66 20 133/62 99 11/15/16 11:40 98 Nasal Cannula 3.00 CBC/BMP: 11/16/16 0551 11/16/16 0551 Lab Results Laboratory Tests Test 11/15/16 11/16/16 15:30 05:51 Urine Color YELLOW Urine Turbidity HAZY Urine pH 5.5 Urine Specific [place] 1.019 Urine Protein NEG mg/dL Urine Glucose (UA) TRACE mg/dL Urine Ketones NEG mg/dL Urine Occult Blood NEG Urine Nitrite NEG Urine Bilirubin NEG Urine Urobilinogen LESS THAN 2.0 MG/DL Urine Leukocyte Esterase NEG Urine RBC LESS THAN 1 /hpf Urine WBC LESS THAN 1 /hpf Urine Hyaline Casts 1 /lpf Urine Mucus FEW /lpf Microscopic Urinalysis Comment CULT NOT INDICATED White Blood Count 10.8 TH/MM3 Red Blood Count 3.59 MIL/MM3 Hemoglobin 11.1 GM/DL Hematocrit 33.1 % Mean Corpuscular Volume 92.4 FL Mean Corpuscular Hemoglobin 30.8 PG Mean Corpuscular Hemoglobin 33.4 % Concent Red Cell Distribution Width 15.4 % Platelet Count 213 TH/MM3 Mean Platelet Volume 7.8 FL Sodium Level 136 MEQ/L Potassium Level 3.9 MEQ/L Chloride Level 102 MEQ/L Carbon Dioxide Level 26.0 MEQ/L Anion Gap 8 MEQ/L Blood Urea Nitrogen 35 MG/DL Creatinine 1.15 MG/DL Estimat Glomerular Filtration 60 ML/MIN Rate Random Glucose 145 MG/DL Calcium Level 8.1 MG/DL Physical Exam General General Appearance: Well Developed, No Acute Distress Eyes Eye Exam: Pupils Equal, Pupils Reactive Ears & Nose Ears & Nose Exam: Nasal Mucosa [place] Throat Throat Exam: Oral Mucosa [place] & Moist Neck Neck Exam: Neck Supple, Trachea Midline Pulmonary Resp Exam: Diminished Breath Sounds Resp Remarks Expiratory wheezes Cardiology CV Exam: Regular Gastrointestinal/Abdomen GI Exam: Soft, Non-Tender, Bowel Sounds Present, Non-Distended Musculoskeletal MS Exam: Joints Intact Integumentary Skin Exam: Warm, Dry Extremeties Extremities Exam: No Edema, Pedal Pulses Palpable Neurologic Neuro Exam: Alert, Awake, Oriented, Speech Clear, Moving All Extremities, No Focal Deficits Assessment/Plan Problem List: (1) COPD (chronic obstructive pulmonary disease) (2) CAD (coronary artery disease) (3) Hypertension (4) CKD (chronic kidney disease) (5) BPH (benign prostatic hyperplasia) Assessment/Plan Continue with oxygen Continue DuoNeb's Continue with IV [id number] to PO Continue with empiric antibiotic Follow cultures, so far negative Regular diet, avoid sodium Monitor renal function Continue with cautious hydration, decrease IV fluids to 30 an hour Avoid nephrotoxic agents Renal fx improved Continue the home medications BP management BP better today Heparin for DVT prophylaxis CM for dc planning, HHC possible discharge today in the afternoon F/U PCP 1 week Diet -heart healthy Activity-as tolerated D/W RN D/W Dr. Mccray D/W pt D/W CM This patient was seen by myself and Dr. Ingram, this note is written on his behalf Problem Qualifiers (1) COPD (chronic obstructive pulmonary disease): Qualified Code: J44.1 - Chronic obstructive pulmonary disease with acute exacerbation (2) CAD (coronary artery disease): Qualified Code: I25.10 - Coronary artery disease involving [place] coronary artery of [place] heart without angina pectoris (3) Hypertension: Qualified Code: I10 - Essential hypertension (4) CKD (chronic kidney disease): Qualified Code: N18.3 - CKD (chronic kidney disease), stage 3 (moderate) (5) BPH (benign prostatic hyperplasia): Sophia Beasley Nov 16, 2016 10:35
[2016-11-16] MEDS ORDERED: LEVO250T3 PO (10:36)
[2016-11-16] MEDS ORDERED: MUCI600T PO (10:36)
[2016-11-16] MEDS ORDERED: NAPHAZOLINE HCL 0.012% OPHT SOLN 15 ML BOTTLE EACH EYE PRN (10:45)
--- NOTE | 2016-11-16 18:20 | HHI.DS ---
Discharge Summary Admission Date Nov 13, 2016 at 19:22 Discharge Date: Nov 16, 2016 Admitting Diagnosis COPD exacerbation, HCAP (1) COPD (chronic obstructive pulmonary disease) (2) CAD (coronary artery disease) (3) Hypertension (4) CKD (chronic kidney disease) (5) BPH (benign prostatic hyperplasia) CBC/BMP: 11/16/16 0551 11/16/16 0551 Significant Findings Laboratory Tests Test 11/14/16 11/15/16 11/16/16 04:42 15:30 05:51 Red Blood Count 3.98 MIL/MM3 3.59 MIL/MM3 (4.50-5.90) (4.50-5.90) Hemoglobin 12.2 GM/DL 11.1 GM/DL (13.0-17.0) (13.0-17.0) Hematocrit 36.5 % 33.1 % (39.0-51.0) (39.0-51.0) Neutrophils (%) (Auto) 89.3 % (16.0-70.0) Lymphocytes # (Auto) 0.6 TH/MM3 (1.0-4.8) Blood Urea Nitrogen 27 MG/DL (7-18) 35 MG/DL (7-18) Creatinine 1.69 MG/DL (0.60-1.30) Estimat Glomerular Filtration 39 ML/MIN (>89) 60 ML/MIN (>89) Rate Random Glucose 144 MG/DL 145 MG/DL (74-106) (74-106) Aspartate Amino Transf 57 U/L (15-37) (AST/SGOT) Urine Turbidity HAZY (CLEAR) Urine Mucus FEW /lpf (OCC) Calcium Level 8.1 MG/DL (8.5-10.1) Imaging Last Impressions Chest X-Ray 11/13/16 1802 Signed Impressions: Service Date/Time: Sunday, November 13, 2016 18:02 - CONCLUSION: Minimal increased density at the bases likely representing some mild atelectasis or consolidation. Anthony Che MD Hospital Course This is a pleasant 86-year-old white male who has a significant history of COPD and dementia. He complains of shortness of breath uncontrollable for the past 2-3 days. The patient did note some fever yesterday, he is positive for productive cough, thick, yellow-green mucus and has been unable to sleep for the past couple of days. He does use 02 at home and has family members who support and help him with his care. The patient denied any chest pain, denied headache, denied any change in appetite except for the last day or two. Denied any weight gain or weight loss and appears to have been in his normal state of health up until these last few days. The patient was recently admitted to the hospital on 10/12/2016, according to the record for a diverticular GI bleed but has no complaints of any symptoms of abdominal pain or changes in his stools. He did have a bowel movement yesterday. The patient is a fair historian but does ramble with some of his information at times. Patient was examined in the emergency room, was found and COPD exacerbation. Imaging studies and laboratory workup was completed. Patient was admitted for (1) COPD (chronic obstructive pulmonary disease) (2) CAD (coronary artery disease) (3) Hypertension (4) CKD (chronic kidney disease) (5) BPH (benign prostatic hyperplasia) During the course of the hospitalization, the following to place: Patient was continued on oxygen,DuoNeb's Initially put on IV steroids which will later were changed to oral Continue with empiric antibiotic Followed cultures, they remain negative Patient demanded a regular diet, instructed to avoid sodium Renal function was monitored closely, it improved He was given cautious hydration Avoided nephrotoxic agents Was Continue on home medications Pressure was managed, it was elevated at times, patient was noted with anxiety. Was put on heparin for DVT prophylaxis Patient improved slowly, shortness of breath somewhat improved. Less coughing and wheezing Patient felt ready to go home for dc planning, [facility] Patient discharged in stable condition Patient to continue with oxygen, he already had equipment at home Patient indicated he had nebulizer equipment as well Instructed to: F/U PCP 1 week Diet -heart healthy Activity-as tolerated Pt Condition on Discharge: Stable Discharge Disposition: Disch w/ Home Health Serv Discharge Instructions DIET: Follow Instructions for: Heart Healthy Diet Activities you can perform: Weight Bearing as Is[place] Follow up Referrals: PCP Follow-up SNF/FDC/ with [facility]([phone]) New Medications: Levofloxacin (Levofloxacin) 250 Mg Tab 250 MG PO DAILY Infection #7 Ref 0 TAB Prednisone (Prednisone) 20 Mg Tab 20 MG PO BID 20 MG ORALLY TWICE A DAY X 5 DAYS, THEN 20 MG ORALLY FOR 5 DAYS, THEN 10 MG ORALLY X 5 DAYS, THEN DISCONTINUE Broncospasm #20 Ref 0 TAB Guaifenesin ER 12 HR (Mucinex ER 12 HR) 600 Mg Cyn 1200 MG PO BID Cough #14 Ref 0 TAB Continued Medications: Amlodipine (Amlodipine) 5 Mg Tab 5 MG PO DAILY Blood Pressure Management Ref 0 TAB Aspirin (Aspirin) 81 Mg Tabdr 81 MG PO DAILY cad #30 TAB Budesonide-Formoterol Inh (Symbicort Inh) 160-4.5 Mcg/Act Aero 2 PUFF INH Q12HR Ref 0 INHALER Donepezil (Donepezil) 10 Mg Tab 10 MG PO HS Dementia Ref 0 TAB Escitalopram (Lexapro) 5 Mg Tab 5 MG PO DAILY Ref 0 TAB Hydrochlorothiazide (Hydrochlorothiazide) 25 Mg Tab 25 MG PO DAILY Ref 0 TAB Ipratropium-Albuterol Inh (Combivent Respimat Inh) 20-100 Chcf/Act Aero 2 PUFF INH TID Asthma Management #1 Ref 0 INHALER Ipratropium-Albuterol Inh (Combivent Respimat Inh) 20-100 Chcf/Act Aero 1 PUFF INH QID Asthma Management Ref 0 INHALER Isosorbide Mononitrate ER (Isosorbide Mononitrate ER) 30 Mg Cyn 30 MG PO DAILY Prevent Chest Pain Ref 0 TAB Lisinopril (Lisinopril) 10 Mg Tab 10 MG PO DAILY Ref 0 TAB Metoprolol Tartrate (Metoprolol Tartrate) 25 Mg Tab 25 MG PO BID Ref 0 TAB Oxycodone (Oxycodone) 5 Mg Cap 5 MG PO Q6H PRN PAIN Ref 0 CAP Pravastatin (Pravastatin) 80 Mg Tab 80 MG PO DAILY Cholesterol Management Ref 0 TAB Primidone (Primidone) 50 Mg Tab 100 MG PO HS Control Seizures Ref 0 TAB Tamsulosin (Tamsulosin) 0.4 Mg Cap 0.4 MG PO HS Manage Prostate Problems Ref 0 CAP Tiotropium Inh (Spiriva Respimat Inh) 2.5 Mcg/Act Aero 2 PUFF INH DAILY 2.5 mcg = 1 inhalation COPD Ref 0 INHALER Sophia Beasley Nov 16, 2016 18:20
[2016-11-16] MEDS ORDERED: PHARMACY ORDERED LAB XX ONE (20:45)
== END 2016-11-16 13:38 | disposition home health service (06) | DRG 192 ==
LOC: NEPA 15:40 → NEDA 19:22 → NEDH 23:55 → N04B 11-14 14:58
PROVIDERS: ADMIT Specialist; ATTEND Specialist
DX: J44.1 Chronic obstructive pulmonary disease with (acute) exacerbation (principal); F03.90 Unspecified dementia, unspecified severity, without behavioral disturbance, psychotic disturbance, mood disturbance, and anxiety; I12.9 Hypertensive chronic kidney disease with stage 1 through stage 4 chronic kidney disease, or unspecified chronic kidney disease; N18.9 Chronic kidney disease, unspecified; I25.10 Atherosclerotic heart disease of native coronary artery without angina pectoris; Z95.5 Presence of coronary angioplasty implant and graft; N40.0 Benign prostatic hyperplasia without lower urinary tract symptoms; E78.5 Hyperlipidemia, unspecified; F32.9 Major depressive disorder, single episode, unspecified; M19.90 Unspecified osteoarthritis, unspecified site; Z87.891 Personal history of nicotine dependence
CPT/HCPCS: 36600; 71010; 80048; 80076; 81001; 82550; 82552; 82805; 83605; 83874; 83880; 84484; 85025; 85027; 85610; 85730; 87040; 93005; 94640; 94664; 96374; J0692; J1644; J2543; J2920; J2930; J3370; J7030; J7050; J7613

== ENCOUNTER → 2017-03-15 | Outpatient (CLI) | payer OTHER ==
[~2017-03-15] MED LIST changes: +LEVO250T3 PO; +MUCI600T PO; +PRED20 PO
== END ==
LOC: HRSP 10:20
PROVIDERS: ATTEND Specialist
DX: J44.9 Chronic obstructive pulmonary disease, unspecified (principal)